=== PATIENT | female | born 1990 | race Caucasian/White ===

== ENCOUNTER → 2018-10-14 14:32 | Outpatient (CLI) | payer OTHER, SELFPAY ==
[2018-10-14 19:38] LABS: Chlamydia Trachomatis by PCR Negative (Negative); Neisserai gonorrhoeae by PCR Negative (Negative); Probe Check PASS; Sample Adequacy Control PASS; Specimen Processing Control PASS
[2018-10-18 11:59] LABS: HPV Reflexed? NOT INDICATED
== END ==
PROVIDERS: Visit Provider Obstetrics & Gynecology
DX: Z12.4 Encounter for screening for malignant neoplasm of cervix (principal); Z11.3 Encounter for screening for infections with a predominantly sexual mode of transmission; Z34.82 Encounter for supervision of other normal pregnancy, second trimester
CPT/HCPCS: 87491; 87591; 88175; G0145

== ENCOUNTER → 2018-10-20 09:06 | Outpatient (CLI) | payer OTHER, SELFPAY ==
[2017-04-13 18:25] VITALS: BMI 44.8
--- NOTE | 2018-10-20 09:09 | US_ITS ---
STUDY: FIRST TRIMESTER OBSTETRICAL ULTRASOUND REASON FOR EXAM: Female, 28 years old. dating. LMP: June 30, 2018. Unsure. TECHNIQUE: Transvaginal TECHNICAL QUALITY: Adequate. PRIOR ULTRASOUND: None. FINDINGS: There is visualization of a single gestational sac in a normal intrauterine position. There is a visualized yolk sac. The yolk sac measures 4.3 mm. There is visualization of the placenta. The placenta lies along the anterior wall of the uterus. There is visualization of a live embryo. The crown-rump length (CRL) measures 5.16 cm, indicating an estimated gestational age (EGA) of 11 weeks, 6 days. There is demonstrated cardiac activity with a heart rate of 132 bpm. The estimated gestation age (EGA) by LMP is 16 weeks, 0 days. The estimated date of delivery (APRIL) by LMP is May 05, 2019. The estimated gestation age (EGA) by US is 11 weeks, 6 days. The estimated date of delivery (APRIL) by US is May 05, 2019. The uterus measures 12.5 cm x 9.0 cm x 8.4 cm. There is no demonstrated uterine fibroid. The cervix is closed. The right ovary measures is not visualized.. The left ovary measures is not visualized.. There is no fluid in the cul de sac. US/Init OB < 14Wks US IMPRESSION: Single live intrauterine gestation with a mean gestational age of 11 weeks and 6 days. Electronically Signed: Francisco Simpson MD at 8:58 EST Tel [phone], Service support ,
== END ==
PROVIDERS: Family Provider Student in an Organized Health Care Education/Training Program; PCP Student in an Organized Health Care Education/Training Program; Referring Provider Obstetrics & Gynecology; Visit Provider Obstetrics & Gynecology
DX: Z34.82 Encounter for supervision of other normal pregnancy, second trimester (principal)
CPT/HCPCS: 76801

== ENCOUNTER → 2018-11-10 10:01 | Outpatient (CLI) | payer OTHER, SELFPAY ==
[2018-11-10 11:03] LABS: Color, Urine Yellow (Yellow); Glucose, Dipstick Normal (Normal); Ketone-Dipstick Negative (Negative); Leukocyte Esterase-Dipstick 25 /ul (Negative); Nitrite-Dipstick Negative (Negative); Occult Blood-Urine 10 /ul (Negative); Protein-Dipstick Negative (Negative); Specific Gravity, Urine 1.025 (1.002-1.030); Urine Bilirubin Dipstick Negative (Negative); Urine Clarity Sl. Cloudy (Clear); Urine Urobilinogen Normal (Normal)
[2018-11-10 14:00] LABS: Absolute Lymphocyte Count 1.69 X10^3/ul (0.83-4.51); Absolute Neutrophil Count 7.4 X10^3/uL (2.0-7.7); Basophil# 0.04 X10^3/uL; Basophil% 0.4 % (0-1); Eosinophil# 0.06 X10^3/uL; Eosinophils% 0.6 % (0-5); Hematocrit 40.3 % (37-47); Hemoglobin 13.4 g/dl (12.0-15.0); Lymphocyte # 1.69 X10^3/ul (4.0); Lymphocyte % 17.4 % (19-41); Mean Corp Hgb Conc 33.3 g/gl (32-36); Mean Corpuscular Hgb 28.3 pg (27.0-32.0); Mean Corpuscular Volume 85.2 fL (81-99); Mean Platelet Vol. 10.5 fl (6.2-12.0); Monocyte# 0.57 X10^3/uL; Monocyte% 5.9 % (0-10); Neutrophil # 7.35 X10^3/uL (2.7-7.7); Neutrophil % 75.4 % (47-70); Platelet Count 332 K/mm3 (150-450); RBC Distribution Width CV 13.6 % (11.6-14.6); RBC Distribution Width SD 42.3 fl (35.1-43.9); Red Blood Count 4.73 M/mm3 (4.2-5.4); White Blood Count 9.7 K/mm3 (4.4-11.0)
[2018-11-10 14:03] LABS: POSITIVE COUNT NO; POSITIVE DIFFERENTIAL NO; POSITIVE MORPHOLOGY NO
[2018-11-10 15:02] LABS: HIV - WCH Non-Reactive (Nonreactive); Rubella IgG > 500.0 IU/mL
[2018-11-11 09:07] LABS: HEPATITIS B SURFACE AG Negative (Negative); Hep C Antibodies 0.1 s/co ratio (0.0-0.9)
[2018-11-14 04:54] LABS: Prenatal RPR NONREACTIVE (NONREACTIVE)
== END ==
PROVIDERS: Visit Provider Obstetrics & Gynecology
DX: Z34.82 Encounter for supervision of other normal pregnancy, second trimester (principal)
CPT/HCPCS: 36415; 81002; 84443; 85025; 86703; 86762; 86803; 87340

== ENCOUNTER → 2018-12-17 12:31 | Outpatient (CLI) | payer OTHER, SELFPAY ==
--- NOTE | 2018-12-17 12:34 | US_ITS ---
STUDY: SECOND AND THIRD TRIMESTER OBSTETRICAL ULTRASOUND REASON FOR EXAM: Female, 28 years old. Routine survey. LMP: October 20, 2018. TECHNIQUE: Transabdominal TECHNICAL QUALITY: Limited. Examination limited due to obesity. PRIOR ULTRASOUND: None. FINDINGS: There is a single intrauterine fetus. The fetus is in a breech presentation. There is demonstrated cardiac activity with a heart rate of 147 bpm. There is a normal amniotic fluid volume. The largest amniotic fluid pocket measures 3.3 cm x 3.0 cm. The amniotic fluid index (SUMANTH) is within normal limits. The placenta is anterior in location and is not low lying. There are Grade 0 placental changes. The cervix measures 3.2 cm in length. 3 BIOMETRY: BPD: 4.29 cm: 19 weeks, 0 days HC: 17.02 cm: 19 weeks, 5 days AC: 13.53 cm: 19 weeks, 0 days FL: 3.09 cm: 9 weeks, 5 days CI: 71% FL/BPD: 72% FL/HC: FL/AC: 23% HC/AC: 1.26 age by current US: 19 weeks, 3 days. APRIL by current US: May 10, 2019. Estimated weight: 284 grams, +/- 42 grams, 10 %. age by prior US: 20 weeks, 1 days. APRIL by prior US: May 05, 2019. Age by LMP: 20 weeks, 1 days. APRIL by LMP: May 05, 2019. ANATOMY: Gender: Indeterminant Cranium: Normal lateral ventricles. Normal choroid plexus. Normal cerebellum. Normal cisterna magna. Normal face, nose and lips. Chest: Normal 4-chamber heart. Abdomen/Pelvis: Normal diaphragm. Normal stomach. Normal abdominal wall. Normal cord insertion. Normal 3 vessel cord. Normal kidneys. Normal bladder. Spine: Normal cervical spine. Normal thoracic spine. Normal lumbar spine. Normal sacrum. Extremities: Normal bilateral upper extremities. Normal bilateral lower extremities. US/OB Anatomy Scan IMPRESSION: Single live intrauterine gestation with mean gestational age of 20 weeks and 1 day. The measurements obtained today fall within the normal expected range. Electronically Signed: Francisco Simpson MD at 12:54 EST Tel [phone], Service support ,
--- OUTSIDE RECORDS SUMMARY | 2019-02-21 08:29 | XMS RPT_ITS ---
:1990 Author Organization [place] Support Name Relationship Address Phone RIGO JONES Unavailable [address] + [place] [address] PIERCE GRIMALDO Unavailable [address] [facility] [address] + [place] [address] [facility] Unavailable [address] + [place] [address] RIGO JONES Unavailable [address] + [place] [address] PIERCE GRIMALDO Unavailable [address] [facility] [address] + [place] [address] [facility] Unavailable [address] + [place] [address] RGIO JONES Unavailable [address] + [place] [address] PIERCE GRIMALDO Unavailable [address] + [place] [address] [facility] Unavailable [address] + [place] [address] RIGO JONES Unavailable [address] + [place] [address] PIERCE GRIMALDO Unavailable [address] + [place] [address] [facility] Unavailable [address] + [place] [address] RIGO JONES Unavailable [address] + [place] [address] PIERCE GRIMALDO Unavailable [address] [facility] [address] + [place] [address] [facility] Unavailable [address] + [place] [address] Care Team Providers Name Role Phone Verónica Raygoza Attending Unavailable Idalmis, Verónica Referring Unavailable Sergio Victoria Primary Care Unavailable ASSESSMENT, HEALTH RISK Attending Unavailable ASSESSMENT, HEALTH RISK Referring Unavailable Verónica Raygoza Primary Care Unavailable Ayms, Verónica Attending Unavailable Amys, Verónica Attending Unavailable Amys, Verónica Referring Unavailable DowningCole Primary Care Unavailable Amys, Verónica Attending Unavailable PROBLEMS PROBLEMS DATE TYPE CONDITION / CODE ATTENDING STATUS SOURCE 11/12/2018 Unknown Z34.82 - Encounter Verónica Raygoza Active Amy for supervision of Community other normal Hospital , second Repository trimester / Z34.82(ICD-10) 10/14/2018 Unknown Z12.4 - Encounter Verónica Raygoza Active [place] for screening for Community malignant neoplasm Hospital of cervix / Repository Z12.4(ICD-10) 10/14/2018 Unknown Z11.3 - Encounter Verónica Raygoza Active [place] for screening for Community infections with a Hospital predominantly Repository sexual mode of transmission / Z11.3(ICD-10) PROCEDURES PROCEDURES No Procedure Records FoundRESULTS RESULTS OB ANATOMY SCAN Observed: 12/17/2018 Status: F Source: AMY 12:35 PM [facility] REPOSITORY [facility] Imaging Services [address] [place] [address] OB Anatomy Scan MR#: [id number] Acct: [id number] Name: KATHI GRIMALDO Rep #: [id number] : 1990 F 28 From: Francisco Simpson MD PCP: Sergio Victoria MD Status: REG CLI Study: OB Anatomy Scan Date of Exam: 12/17/18 Exam# [id number] Ordering Dr: Verónica Raygoza MD STUDY: SECOND AND THIRD TRIMESTER OBSTETRICAL ULTRASOUND REASON FOR EXAM: Female, 28 years old. Routine survey. LMP: October 20, 2018. TECHNIQUE: Transabdominal TECHNICAL QUALITY: Limited. Examination limited due to obesity. PRIOR ULTRASOUND: None. FINDINGS: There is a single intrauterine fetus. The fetus is in a breech presentation. There is demonstrated cardiac activity with a heart rate of 147 bpm. There is a normal amniotic fluid volume. The largest amniotic fluid pocket measures 3.3 cm x 3.0 cm. The amniotic fluid index (SUMANTH) is within normal limits. The placenta is anterior in location and is not low lying. There are Grade 0 placental changes. The cervix measures 3.2 cm in length. 3 BIOMETRY: BPD: 4.29 cm: 19 weeks, 0 days HC: 17.02 cm: 19 weeks, 5 days AC: 13.53 cm: 19 weeks, 0 days FL: 3.09 cm: 9 weeks, 5 days CI: 71% FL/BPD: 72% FL/HC: FL/AC: 23% HC/AC: 1.26 age by current US: 19 weeks, 3 days. APRIL by current US: May 10, 2019. Estimated weight: 284 grams, +/- 42 grams, 10 %. age by prior US: 20 weeks, 1 days. APRIL by prior US: May 05, 2019. Age by LMP: 20 weeks, 1 days. APRIL by LMP: May 05, 2019. ANATOMY: Gender: Indeterminant Cranium: Normal lateral ventricles. Normal choroid plexus. Normal cerebellum. Normal cisterna magna. Normal face, nose and lips. Chest: Normal 4-chamber heart. Abdomen/Pelvis: Normal diaphragm. Normal stomach. Normal abdominal wall. Normal cord insertion. Normal 3 vessel cord. Normal kidneys. Normal bladder. Spine: Normal cervical spine. Normal thoracic spine. Normal lumbar spine. Normal sacrum. Extremities: Normal bilateral upper extremities. Normal bilateral lower extremities. US/OB Anatomy Scan IMPRESSION: Single live intrauterine gestation with mean gestational age of 20 weeks and 1 day. The measurements obtained today fall within the normal expected range. Electronically Signed: Francisco Simpson MD at 12:54 EST Tel [phone], Service support , CC: Verónica Raygoza MD; Sergio Victoria MD Vision Impaired Teacher: Signed URINALYSIS, ROUTINE Collected: 11/10/2018 Status: F Source: AMY (DIPSTICK) 10:04 AM [facility] REPOSITORY Order Comment: How was Urine Obtained? Urine, Random TYPE CODE TESTS RESULT OUT OF RANGE REFERENCE UNITS LAB L400.3000 Yellow COLOR Normal Yellow LAB L400.3050 Clear Normal CLARITY Sl. Cloudy LAB L400.3200 Normal mg/dl Normal GLUCOSE, UR Normal LAB L400.3300 Negative mg/dL Normal BILIRUBIN URINE Negative LAB L400.3400 Negative mg/dl Normal KETONE UR Negative LAB L400.3465 1.002-1.030 Normal SP.GR. DIPSTX 1.025 LAB L400.3550 5.0 - 8.0 pH UR Normal 6.0 LAB L400.3600 Negative mg/dl PROT Normal DIPSTX Negative LAB L400.3700 Normal mg/dl Normal UROBILI Normal LAB L400.3750 Negative Normal NITRITE UR Negative LAB L400.3780 Negative /ul High 10 OCCULT BLOOD-UR LAB L400.3800 Negative /ul High LEUK 25 ESTERASE Performed By: #### L400.2010 #### [facility] [address] [place], [address] CBC W/DIFF, AUTOMATED Collected: 11/10/2018 Status: F Source: AMY 10:04 AM [facility] REPOSITORY TYPE CODE TESTS RESULT OUT OF RANGE REFERENCE UNITS LAB L100.1000 4.4-11.0 K/mm3 Normal WBC 9.7 LAB L100.1200 4.2-5.4 M/mm3 Normal RBC 4.73 LAB L100.1300 12.0-15.0 g/dl Normal HGB 13.4 LAB L100.1400 37-47 % Normal HCT 40.3 LAB L100.1500 81-99 fL Normal MCV 85.2 LAB L100.1600 27.0-32.0 pg Normal MCH 28.3 LAB L100.1700 32-36 g/gl Normal MCHC 33.3 LAB L100.1810 11.6-14.6 % Normal RDW CV 13.6 LAB L100.1820 35.1-43.9 fl Normal RDW SD 42.3 LAB L100.1900 150-450 K/mm3 Normal PLT 332 LAB L100.2000 6.2-12.0 fl Normal MPV 10.5 LAB L100.2100 47-70 % High NEUT% 75.4 LAB L100.2200 19-41 % Low LY% 17.4 LAB L100.2300 0-10 % Normal MONO% 5.9 LAB L100.2400 0-5 % Normal EO% 0.6 LAB L100.2500 0-1 % Normal BASO% 0.4 LAB L100.2550 0.0-0.9 % Normal IM GRAN % 0.300 Result Comment: IG% - Immature Granulocytes (promyelocytes, myelocytes and metamyelocytes) > 1% indicates that a LEFT SHIFT is Present. LAB L100.2620 2.0-7.7 X10 3/uL Normal Absolute Neut 7.4 LAB L100.2720 0.83-4.51 X10 3/ul Normal Absolute Lymph 1.69 Performed By: #### L100.0100 #### [facility] [address] [place], [place], [id number] THYROID STIM HORMONE Collected: 11/10/2018 Status: F Source: AMY (TSH) 10:04 [facility] REPOSITORY TYPE CODE TESTS RESULT OUT OF RANGE REFERENCE UNITS LAB L501.9520 0.358-3.74 uIU/mL Normal TSH 2.40 Performed By: #### L501.9520 #### [facility] [address] [place] [address], [id number] T AND S-NO Collected: 11/10/2018 Status: F Source: AMY CHARGE W/PNP 10:04 [facility] REPOSITORY Order Comment: Reason for Type AND Screen/Red Cells: Surgery? N TYPE CODE TESTS RESULT OUT OF RANGE REFERENCE UNITS LAB B10.0800 O Normal BLOOD POSITIVE TYPE GEL LAB B100.4050 Normal Ab SCREEN NEGATIVE GEL Performed By: #### B100.7550 #### [facility] [place], [place], [address] RUBELLA IGG Collected: 11/10/2018 Status: F Source: AMY 10:04 AM [facility] REPOSITORY TYPE CODE TESTS RESULT OUT OF RANGE REFERENCE UNITS LAB L509.4000 IU/mL Normal Rubella IgG > 500.0 Result Comment: Antibody results Interpretation of Immune Status < 5 IU/ml Presumed Non-immune 5 - < 10 IU/ml Equivocal > or = 10 IU/ml Presumed Immune Performed By: #### L509.4000, L3890.6005 #### [facility] [address] [place], [place], [address] HIV - WCH Collected: 11/10/2018 Status: F Source: AMY 10:04 AM [facility] REPOSITORY TYPE CODE TESTS RESULT OUT OF RANGE REFERENCE UNITS LAB L3890.6005 Nonreactive Normal HIV - W[facility] Non-Reactive Performed By: #### L509.4000, L3890.6005 #### [facility] [address] [facility] [place], [place], [id number] HEPATITIS B SURFACE Collected: 11/10/2018 Status: F Source: AMY AG 10:04 AM [facility] REPOSITORY TYPE CODE TESTS RESULT OUT OF RANGE REFERENCE UNITS LAB L3100.0400 Negative Normal HB Negative SURF AG Result Comment: Performed at: [facility] [id number] Chain Saw Mechanic: Mustapha Castanon PhD, Phone: [phone] Performed By: #### L3100.0390, L3100.0625 #### [facility] (refer to report for specific site) refer to report for address and phone number HEPATITIS C ANTIBODIES Collected: 11/10/2018 Status: F Source: AMY 10:04 AM [facility] REPOSITORY TYPE CODE TESTS RESULT OUT OF RANGE REFERENCE UNITS LAB L3100.0650 0.0-0.9 s/co ratio Normal HEP C AB 0.1 Result Comment: Negative: < 0.8 Indeterminate: 0.8 - 0.9 Positive: > 0.9 The CDC recommends that a positive HCV antibody result be followed up with a HCV Nucleic Acid Amplification test (103424). Performed By: #### L3100.0390, L3100.0625 #### [facility] (refer to report for specific site) refer to report for address and phone number RPR Collected: 11/10/2018 Status: F Source: AMY 10:04 AM [facility] REPOSITORY TYPE CODE TESTS RESULT OUT OF REFERENCE UNITS RANGE LAB L700.5100 NONREACTIVE Normal RPR NONREACTIVE Performed By: #### L700.5100 #### [facility] [address] [place], [address] INIT OB < 14WKS US Observed: 10/20/2018 Status: F Source: AMY 9:10 AM [facility] REPOSITORY [facility] Imaging Services [address] [place] [address] Init OB < 14Wks US MR#: [id number] Acct: [id number] Name: KATHI GRIMALDO Rep #: [id number] : 1990 F 28 From: Francisco Simpson MD PCP: Cole Tomlinson DO Status: REG CLI Study: Init OB < 14Wks US Date of Exam: 10/20/18 Exam# [id number] Ordering Dr: Verónica Raygoza MD STUDY: FIRST TRIMESTER OBSTETRICAL ULTRASOUND REASON FOR EXAM: Female, 28 years old. dating. LMP: June 30, 2018. Unsure. TECHNIQUE: Transvaginal TECHNICAL QUALITY: Adequate. PRIOR ULTRASOUND: None. FINDINGS: There is visualization of a single gestational sac in a normal intrauterine position. There is a visualized yolk sac. The yolk sac measures 4.3 mm. There is visualization of the placenta. The placenta lies along the anterior wall of the uterus. There is visualization of a live embryo. The crown-rump length (CRL) measures 5.16 cm, indicating an estimated gestational age (EGA) of 11 weeks, 6 days. There is demonstrated cardiac activity with a heart rate of 132 bpm. The estimated gestation age (EGA) by LMP is 16 weeks, 0 days. The estimated date of delivery (APRIL) by LMP is May 05, 2019. The estimated gestation age (EGA) by US is 11 weeks, 6 days. The estimated date of delivery (APRIL) by US is May 05, 2019. The uterus measures 12.5 cm x 9.0 cm x 8.4 cm. There is no demonstrated uterine fibroid. The cervix is closed. The right ovary measures is not visualized.. The left ovary measures is not visualized.. There is no fluid in the cul de sac. US/Init OB < 14Wks US IMPRESSION: Single live intrauterine gestation with a mean gestational age of 11 weeks and 6 days. Electronically Signed: Francisco Simpson MD at 8:58 EST Tel [phone], Service support , CC: Verónica Raygoza MD; Cole Tomlinson DO Vision Impaired Teacher: Signed CT/NG WCH BY PCR Collected: 10/14/2018 Status: F Source: [place] 9:30 AM [facility] REPOSITORY TYPE CODE TESTS RESULT OUT OF RANGE REFERENCE UNITS LAB L8200.2100 Negative Normal Chlam Negative Trac PCR LAB L8200.2200 Negative Normal NG by Negative PCR Performed By: #### L8200.2000 #### [facility] [address] [place], [address] PAP I-G W/RFX HRHPV Collected: 10/14/2018 Status: F Source: [place] 9:30 AM [facility] REPOSITORY Order Comment: CYTOLOGY INFORMATION: - CLINICAL INFORMATION: - DATE LMP/MENOPAUSE: 06/30/18 LMP - COLLECTION VIAL: Thin Prep Vial - FITTING ROOM OPERATOR SOURCE: CERVICAL/ENDOCERVICAL - COLLECTION TECHNIQUE: BRUSH/SPATULA Specimen Comment: [id number] Specimen Comment: Source.............Cervix Specimen Comment: LMP / Prev Treat...FLW=[id number] Specimen Comment: Other.............. Specimen Comment: No. of containers..01 ThinPrep Vial TYPE CODE TESTS RESULT OUT OF RANGE REFERENCE UNITS LAB L7400.0800 . Normal DIAGN Comment Result Comment: NEGATIVE FOR INTRAEPITHELIAL LESION AND MALIGNANCY. LAB L7400.0900 . Normal ADEQ Comment Result Comment: Satisfactory for evaluation. Endocervical and/or squamous metaplastic cells (endocervical component) are present. LAB L7400.1400 . Normal PERFORM Comment Result Comment: Jacki Edwards, Repair Operator (ASCP) LAB L7400.2575 . Normal TEST METHOD Comment Result Comment: This liquid based ThinPrep(R) pap test was screened with the use of an image guided system. LAB L7400.2600 . Normal . COMM LAB L7400.2700 . Normal PAPSMR Comment Result Comment: The Pap smear is a screening test designed to aid in the detection of premalignant and malignant conditions of the uterine cervix. It is not a diagnostic procedure and should not be used as the sole means of detecting cervical cancer. Both false-positive and false-negative reports do occur. LAB L7400.2800 . Normal HPV RFLX Comment Result Comment: The HPV DNA reflex criteria were not met with this specimen result therefore, no HPV testing was performed. Performed at: [facility] [address] [id number] Chain Saw Mechanic: Shireen Riojas MD, Phone: [phone] Performed By: #### L7400.0350 #### [facility] (refer to [facility] for specific site) refer to report for address and phone number URINALYSIS, EMPLOYEE Collected: 08/19/2018 Status: F Source: [place] 11:09 AM [facility] REPOSITORY TYPE CODE TESTS RESULT OUT OF RANGE REFERENCE UNITS LAB L400.3000 Yellow COLOR Normal Yellow LAB L400.3050 Clear Normal CLARITY Clear LAB L400.3200 Normal mg/dl Normal GLUCOSE, UR Normal LAB L400.3300 Negative mg/dL Normal BILIRUBIN URINE Negative LAB L400.3400 Negative mg/dl Normal KETONE UR Negative LAB L400.3465 1.002-1.030 Normal SP.GR. DIPSTX 1.015 LAB L400.3550 5.0 - 8.0 pH UR Normal 6.0 LAB L400.3600 Negative mg/dl PROT Normal DIPSTX Negative LAB L400.3700 Normal mg/dl Normal UROBILI Normal LAB L400.3750 Negative Normal NITRITE UR Negative LAB L400.3780 Negative /ul Normal OCCULT BLOOD-UR Negative LAB L400.3800 Negative /ul LEUK Normal ESTERASE Negative Performed By: #### L400.0100 #### [facility] [place], [address] CBC, EMPLOYEE Collected: 08/19/2018 Status: F Source: AMY 11:09 AM [facility] REPOSITORY TYPE CODE TESTS RESULT OUT OF RANGE REFERENCE UNITS LAB L100.1000 4.4-11.0 K/mm3 Normal WBC 7.2 LAB L100.1200 4.2-5.4 M/mm3 Normal RBC 4.95 LAB L100.1300 12.0-15.0 g/dl Normal HGB 13.7 LAB L100.1400 37-47 % Normal HCT 41.0 LAB L100.1500 81-99 fL Normal MCV 82.8 LAB L100.1600 27.0-32.0 pg Normal MCH 27.7 LAB L100.1700 32-36 g/gl Normal MCHC 33.4 LAB L100.1810 11.6-14.6 % Normal RDW CV 12.9 LAB L100.1820 35.1-43.9 fl Normal RDW SD 38.7 LAB L100.1900 150-450 K/mm3 Normal PLT 342 LAB L100.2000 6.2-12.0 fl Normal MPV 10.0 LAB L100.2110 47-70 % Normal NEUT% 58.6 LAB L100.2210 19-41 % Normal LY% 32.0 LAB L100.2310 0-10 % Normal MONO% 7.7 LAB L100.2410 0-5 % Normal EO% 1.0 LAB L100.2510 0-1 % Normal BASO% 0.6 LAB L100.2620 2.0-7.7 X10 3/uL Normal Absolute Neut 4.2 LAB L100.2720 0.83-4.51 X10 3/ul Normal Absolute Lymph 2.32 Performed By: #### L100.0200 #### [facility] [address] [place], [address] NICOTINE URINE DRUG Collected: 08/19/2018 Status: F Source: AMY SCREEN 11:09 AM [facility] REPOSITORY TYPE CODE TESTS RESULT OUT OF RANGE REFERENCE UNITS LAB L505.6250 TO BE Normal CONFIRMED Result Comment: CONFIRMATORY TESTING FOR ALL POSITIVE URINE DRUG SCREEN RESULTS WILL ONLY BE SENT OUT UPON PHYSICIAN ORDER. The results of Urine Drug Screen methods provide only preliminary analytical test results. A more specific alternate chemical method must be used in order to obtain a confirmed analytical result. Gas chromatography/mass spectrometery (GC/MS) is the preferred confirmatory method. Clinical consideration and professional judgement should be applied to any drug of abuse test result, particularly when preliminary positive results are used. LAB L505.6270 <200 ng/mL Normal COT DRG Negative SCREEN Result Comment: Cotinine is the first-stage metabolite of Nicotine. Performed By: #### L505.6240 #### [facility] [place], [address] EMPLOYEE PROFILE Collected: 08/19/2018 Status: F Source: [place] 11:09 AM [facility] REPOSITORY TYPE CODE TESTS RESULT OUT OF RANGE REFERENCE UNITS LAB L501.0100 74-106 mg/dL Normal GLU 78 Result Comment: Please note revised GLUCOSE reference range effective 2018. LAB L501.1000 7-18 mg/dL Normal BUN 13 LAB L501.1100 0.55-1.02 mg/dL Normal CREAT,SERUM 0.84 Result Comment: The validity of the calculated GFR AND GFRAA in patients over 70 years has not been determined. Clinical correlation is essential. LAB L501.1110 >60 mL/min Normal EST GFR 84 Result Comment: Non- GFR Calc LAB L501.1115 >60 mL/min Normal EST GFR - AA 102 Result Comment: GFR Calc LAB L501.1300 10-20 RATIO Normal BUN/CRE 15.4 LAB L501.1400 2.6-6.0 mg/dL Normal URIC 4.9 Result Comment: The drugs N-Acetylcysteine and Metamizole may falsely depress this assay. LAB L501.1500 6.4-8.2 g/dL Normal T PROT 7.5 LAB L501.1800 3.2-5.0 g/dL Normal ALB 3.6 LAB L501.1950 2.2-4.2 g/dL Normal GLOB 3.9 LAB L501.2000 0.9-2.4 RATIO Normal A/G 0.9 LAB L501.2200 8.5-10.1 mg/dL Low CA 8.3 LAB L501.2300 2.5-4.9 mg/dL Normal PHOS 2.6 LAB L501.4100 15-37 U/L Normal AST 18 LAB L501.4305 45-117 U/L Normal ALK P 68 LAB L501.4405 13-56 U/L Normal ALT 36 LAB L501.4600 0.20-1.00 mg/dL Normal T BILI 0.60 LAB L501.4700 0.00-0.30 mg/dL Normal D BILI 0.13 LAB L501.4900 200 mg/dL Normal CHOL 130 Result Comment: <200 mg/dL Desirable 200-240 mg/dL Borderline >240 mg/dL High Risk LAB L501.5000 mg/dL Normal TRIG 98 Result Comment: The drugs N-Acetylcysteine and Metamizole may falsely depress this assay. Serum Triglycerides Reference Interval Normal <150 mg/dL Borderline high 150 - 199 mg/dL High 200 - 499 mg/dL Very High > or = 500 mg/dL LAB L501.5300 136-145 mmol/L Normal NA 138 LAB L501.5600 3.5-5.1 mmol/L Normal K 3.9 LAB L501.5900 98-107 mmol/L High CL 108 LAB L501.6100 21.0-32.0 mmol/L Low CO2 20.0 LAB L501.6200 5-15 Normal GAP 10 LAB L501.6400 mg/dL Normal HDL 55 Result Comment: The drugs N-Acetylcysteine and Metamizole may falsely depress this assay. Reference Range HDL <40 mg/dL Low HDL Cholesterol HDL >or= 60 mg/dL High HDL Cholesterol LAB L501.6475 Normal CHOL:HDL 2.40 LAB L501.6500 0-130 mg/dL Normal LDL 55 LAB L501.6600 5-40 mg/dL Normal VLDL 20 LAB L504.2610 84-246 U/L Normal LDH 192 Performed By: #### L500.2900 #### [facility] [address] [place], [place], [id number] ALLERGIES ALLERGIES DATE TYPE / CODE NAME / CODE REACTION SEVERITY SOURCE 04/10/2017 Drug No Known Unknown [facility] Allergy/4160 Allergies/F00 [facility] [address](SNOMED [id number](RXNOR Repository CT) M) ENCOUNTERS ENCOUNTERS ADMIT/DISCHARGE ACCOUNT ADMITTING ENCOUNTER LOCATION SOURCE NUMBER CLASS 12/17/2018 [id number] Ambulatory [address] ing:OPUS Repository 11/10/2018 [id number] Ambulatory [place] Amy 2 [facility] ing:WOBLAB Repository 10/20/2018 [id number] Ambulatory [place] 3 [facility] ing:OPUS Repository 10/14/2018 [id number] Ambulatory [place] Amy 0 [facility] ing:LABSPEC Repository 08/19/2018 [id number] Ambulatory [place] 7 [facility] ing:EMPH Repository PAYERS PAYERS ENCOUNTER GUARANTOR PAYER SUBSCRIBER SOURCE 12/17/2018 KATHI Petersen Primary Insurance:[facility] KATHI [place] [id number] N [facility] [address] Number: Repository [id number]: 330 [id number] [phone] (HP) Date:6509-60-39KC [address] [address], [place] [address]LF: CHECK WEBSITE 12/17/2018 Secondary NOT GIVENUNK [place] Insurance:SELF PAY [facility] Number: Effective Repository Date:2018-11-10 11/10/2018 KATHI Petersen Primary Insurance:[facility] KATHI [address] [id number] N [facility]: [address] Number: Repository [id number]: 330 [id number] [phone] (HP) Date:4220-81-63QV [address] [address], [place] [address]OS: CHECK WEBSITE 11/10/2018 Secondary NOT GIVENUNK [place] Insurance:SELF PAY [facility] Number: Effective Repository Date:2018-11-10 10/20/2018 KATHI Petersen Primary Insurance:[facility] KATHI [place] [id number] N [facility]: [address] Number: Repository [id number]: 330 [id number] [phone] (HP) Date:8038-38-30XA [address] [address], [place] [address]AJ: CHECK WEBSITE 10/20/2018 Secondary NOT GIVENUNK [place] Insurance:SELF PAY [facility] Number: Effective Repository Date:2018-10-14 10/14/2018 Kathi Petersen Primary Insurance:[facility] Kathi Reyes [id number] N [facility] [id number] Number: Repository [id number]: [phone] [id number] [phone] () Date:4752-33-92LL [address] [address], [place] [address]LK: CHECK WEBSITE 10/14/2018 Secondary NOT GIVENUNK [place] Insurance:SELF PAY [facility] Number: Effective Repository Date:2018-10-14 08/19/2018 Kathi Petersen Primary NOT GIVENUNK [place] [id number] N Insurance:SELF PAY [place] Number: Effective Repository [id number]: 330) Date:2018-08-19 [phone] ()
== END ==
PROVIDERS: Family Provider Family Medicine; PCP Family Medicine; Referring Provider Obstetrics & Gynecology; Visit Provider Obstetrics & Gynecology
DX: Z36.9 Encounter for antenatal screening, unspecified (principal)
CPT/HCPCS: 76805

== ENCOUNTER → 2019-02-03 09:06 | Outpatient (CLI) | payer OTHER, SELFPAY ==
[2019-02-03 10:48] LABS: Hematocrit 36.3 % (37-47); Hemoglobin 11.9 g/dl (12.0-15.0); Mean Corp Hgb Conc 32.8 g/gl (32-36); Mean Corpuscular Hgb 29.6 pg (27.0-32.0); Mean Corpuscular Volume 90.3 fL (81-99); Mean Platelet Vol. 10.6 fl (6.2-12.0); Platelet Count 309 K/mm3 (150-450); RBC Distribution Width CV 13.1 % (11.6-14.6); RBC Distribution Width SD 42.7 fl (35.1-43.9); Red Blood Count 4.02 M/mm3 (4.2-5.4); White Blood Count 9.4 K/mm3 (4.4-11.0)
[2019-02-03 10:49] LABS: Scan Indicated on CBC? Y/N NO
[2019-02-03 10:53] LABS: Glucose Challenge Gest 1H 50g 111 mg/dL (70-140)
== END ==
PROVIDERS: Visit Provider Obstetrics & Gynecology
DX: Z34.82 Encounter for supervision of other normal pregnancy, second trimester (principal)
CPT/HCPCS: 36415; 82950; 85027

== ENCOUNTER → 2019-02-23 08:58 | Outpatient (CLI) | payer OTHER, SELFPAY ==
--- NOTE | 2019-02-23 09:00 | US_ITS ---
STUDY: SECOND AND THIRD TRIMESTER OBSTETRICAL ULTRASOUND - LIMITED REASON FOR EXAM: Female, 28 years old. Small for dates. LMP: July 29, 2018. PRIOR ULTRASOUND: Comparison is made with prior study dated December 17, 2018. TECHNIQUE: Transabdominal TECHNICAL QUALITY: Adequate. FINDINGS: There is a single intrauterine fetus. The fetus is in a breech presentation. There is demonstrated cardiac activity with a heart rate of 132 bpm. There is a normal amniotic fluid volume. The largest amniotic fluid pocket measures 5.1 cm. The amniotic fluid index (SUMANTH) is 12.3 cm. The placenta is anterior in location and is not low lying. There are Grade 0 placental changes. The cervix measures 3.5 cm in length. BIOMETRY: BPD: 7.26 cm: 29 weeks, 1 days HC: 26.47 cm: 28 weeks, 6 days AC: 23.14 cm: 27 weeks, 4 days FL: 5.43 cm: 28 weeks, 6 days Age by LMP: 29 weeks, 6 days. APRIL by LMP: May 05, 2019. age by prior US: 29 weeks, 1 days. APRIL by prior US: May 10, 2019. age by current US: 28 weeks, 5 days. APRIL by current US: May 13, 2019. Estimated weight: 1182 grams, +/- 173 grams, 4 percentile. Gender: Indeterminant US/OB Limited With Biometrics IMPRESSION: Single live intrauterine gestation with a mean gestational age of 29 weeks and 1 day. The measurement obtained today fall within the lower limits of normal. Electronically Signed: Francisco Simpson, at 10:04 EDT , Service support ,
== END ==
PROVIDERS: Family Provider Family Medicine; PCP Family Medicine; Referring Provider Obstetrics & Gynecology; Visit Provider Obstetrics & Gynecology
DX: O36.5990 Maternal care for other known or suspected poor fetal growth, unspecified trimester, not applicable or unspecified (principal); Z3A.00 Weeks of gestation of pregnancy not specified
CPT/HCPCS: 76816

== ENCOUNTER 2019-03-10 12:34 | Outpatient (CLI) | payer OTHER, SELFPAY ==
[2019-03-10 12:53] VITALS: BMI 44.0
[2019-03-10 13:05] VITALS: BP 121/64; PULSE 88; RESP 16; TEMP 36.6; O2SAT 97
--- NOTE | 2019-03-13 16:27 | OB.TRI.NOTE ---
History of Present Illness Date of Service: 03/10/19 Reason For Visit: NON STRESS TEST Date of Service: 03/10/19 Final APRIL: 05/05/19 Final APRIL Source: US <20 weeks Gestational age: 32 Weeks and 0 Days History of Present Illness: 28 yo for planned NST 32 wk Sono suggesting SGA Fundal height WNL. Allergies No Known Allergies Allergy (Verified 04/10/17 11:01) Physical Exam Vitals: Vital Signs Temp Pulse Resp BP Pulse Ox 98 F 88 16 121/64 H 97 03/10/19 13:05 03/10/19 13:05 03/10/19 13:05 03/10/19 13:05 03/10/19 13:05 NST - FHR Rate Baby A Baseline: 130-140 with accels to 160-170s Variability:: Moderate Accelerations:: 15 x 15 Decelerations:: None, Early NST Reactive:: Yes, Appropriate for gestational age FHR Category:: Category I Uterine Activity:: No UCs Impression/Plan 32 wk SGA on sono NST reactive Continue twice weekly NST Growth sono q month until delivery Keep next ofc visit as planned.
== END 2019-03-10 13:05 | disposition home or self-care (01) ==
LOC: WPOUT 12:35 → OBT 12:36
PROVIDERS: Family Provider Family Medicine; PCP Family Medicine; Referring Provider Obstetrics & Gynecology; Visit Provider Obstetrics & Gynecology
DX: O36.5930 Maternal care for other known or suspected poor fetal growth, third trimester, not applicable or unspecified (principal); Z3A.32 32 weeks gestation of pregnancy
CPT/HCPCS: 59025

== ENCOUNTER 2019-03-17 18:07 | Outpatient (CLI) | payer OTHER, SELFPAY ==
[2019-03-17 18:48] VITALS: BMI 44.2
--- NOTE | 2019-03-18 09:13 | OB.TRI.NOTE ---
History of Present Illness Date of Service: 03/17/19 Reason For Visit: NST Date of Service: 03/17/19 Final APRIL: 05/05/19 Final APRIL Source: US <20 weeks Gestational age: 33 Weeks and 0 Days History of Present Illness: 28 yo female at 33 wk EGA presents for scheduled NST (twice weekly) for suspected SGA on sono at [facility]. NST twice weekly planned, and growth sonos q month to follow this. Allergies No Known Allergies Allergy (Verified 04/10/17 11:01) NST - FHR Rate Baby A Baseline: 120-130 avg variability Accels to 150 Variability:: Moderate Accelerations:: 15 x 15 Decelerations:: Variable - Rare, with quick return in less than 10 sec. Massimo at 90 bpm. NST Reactive:: Yes, Appropriate for gestational age FHR Category:: Category I Uterine Activity:: NO UCs
== END 2019-03-17 18:40 | disposition home or self-care (01) ==
LOC: WPOUT 18:39 → WP 18:40
PROVIDERS: Family Provider Family Medicine; PCP Family Medicine; Referring Provider Obstetrics & Gynecology; Visit Provider Obstetrics & Gynecology
DX: Z36.4 Encounter for antenatal screening for fetal growth retardation (principal)
CPT/HCPCS: 59025

== ENCOUNTER 2019-03-23 16:50 | Outpatient (CLI) | payer OTHER, SELFPAY ==
[2019-03-23 17:10] VITALS: BMI 44.5
[2019-03-23 17:28] VITALS: BP 130/75; PULSE 81; RESP 16; TEMP 36.7; O2SAT 98
--- NOTE | 2019-03-25 09:24 | OB.TRI.HP_ITS ---
History of Present Illness Was patient seen by the physician?: No Reason For Visit: NST Date of Service: 03/23/19 Final APRIL: 05/05/19 Final APRIL Source: US <20 weeks Gestational age: 33 Weeks and 6 Days History of Present Illness: 33+ week intrauterine presents for routine ultrasound for possible SGA noted on ultrasound. care otherwise uneventful. Allergies No Known Allergies Allergy (Verified 03/23/19 17:11) Physical Exam Vitals: Vital Signs Temp Pulse Resp BP Pulse Ox 98.1 F 81 16 130/75 H 98 03/23/19 17:28 03/23/19 17:28 03/23/19 17:28 03/23/19 17:28 03/23/19 17:28 NST - FHR Rate Baby A NST Reactive:: Yes FHR Category:: Category I Impression/Plan 33+ week intrauterine with possible small for gestational age. Mackay ctive nonstress test noted. Continue routine follow-up.
== END 2019-03-23 17:25 | disposition home or self-care (01) ==
LOC: WPOUT 16:57 → OBT 16:57
PROVIDERS: Family Provider Family Medicine; PCP Family Medicine; Referring Provider Obstetrics & Gynecology; Visit Provider Obstetrics & Gynecology
DX: Z34.93 Encounter for supervision of normal pregnancy, unspecified, third trimester (principal); Z3A.33 33 weeks gestation of pregnancy
CPT/HCPCS: 59025; 59050; 99218; G0378

== ENCOUNTER → 2019-03-25 12:22 | Outpatient (CLI) | payer OTHER, SELFPAY ==
[2019-03-23 17:10] VITALS: BMI 44.5
--- NOTE | 2019-03-25 12:24 | US_ITS ---
STUDY: SECOND AND THIRD TRIMESTER OBSTETRICAL ULTRASOUND - LIMITED REASON FOR EXAM: Female, 28 years old. Growth check LMP: 07/29/2018 PRIOR ULTRASOUND: 02/23/2019 TECHNIQUE: Transabdominal TECHNICAL QUALITY: Adequate. FINDINGS: There is a single intrauterine fetus. The fetus is in a cephalic presentation. There is demonstrated cardiac activity with a heart rate of 142 bpm. There is a normal amniotic fluid volume. The largest amniotic fluid pocket measures 5.2 cm. The amniotic fluid index (SUMANTH) is 13.5 cm. The placenta is anterior in location and is not low lying. There are Grade 1 placental changes. The cervix measures 4.4 cm in length. BIOMETRY: BPD: 8.10 cm: 32 weeks, 4 days HC: 29.64 cm: 32 weeks, 6 days AC: 27.04 cm: 31 weeks, 1 days FL: 6.59 cm: 34 weeks, 0 days Age by LMP: 34 weeks, 1 days. APRIL by LMP: 05/05/2019. age by prior US: 33 weeks, 0 days. APRIL by prior US: 05/13/2019. age by current US: 32 weeks, 5 days. APRIL by current US: 05/15/2019. Estimated weight: 1942 grams, +/- 284 grams, 7 percentile. Gender: Indeterminant US/OB Limited With Biometrics IMPRESSION: Single live intrauterine at 32 weeks, 5 days by current ultrasound with APRIL of 05/15/2019. Heart rate at 142 bpm. No suspicious sonographic findings, normal growth noted since the previous study. Electronically Signed: Richard Sparks MD at 10:10 EDT , Service support ,
== END ==
PROVIDERS: Family Provider Family Medicine; PCP Family Medicine; Referring Provider Obstetrics & Gynecology; Visit Provider Obstetrics & Gynecology
DX: Z34.93 Encounter for supervision of normal pregnancy, unspecified, third trimester (principal); Z36.9 Encounter for antenatal screening, unspecified
CPT/HCPCS: 76816

== ENCOUNTER 2019-03-30 15:50 | Outpatient (CLI) | payer OTHER, SELFPAY ==
[2019-03-30 15:59] VITALS: BMI 44.9
--- NOTE | 2019-03-31 18:05 | OB.TRI.NOTE ---
History of Present Illness Date of Service: 03/30/19 Was patient seen by the physician?: No Reason For Visit: NST Date of Service: 03/30/19 Final APRIL: 05/05/19 Final APRIL Source: US <20 weeks Gestational age: 34 Weeks and 6 Days History of Present Illness: 28 yo female with SGA fetus 7th% at last sono. Presents for scheduled NST. Allergies No Known Allergies Allergy (Verified 03/23/19 17:11) NST - FHR Rate Baby A Baseline: 120-130s avg with accels to 160s occ VD Variability:: Moderate Accelerations:: 15 x 15 Decelerations:: Variable - less then 10 sec , tobin to 100 bpm. NST Reactive:: Yes, Appropriate for gestational age FHR Category:: Category I Uterine Activity:: no regular UCs Impression/Plan 34 6/7 wk EGA SGA Reactive NST Home Keep ofc appts as planned and scheduled NSTs Return to hospital if inc s/sx of labor.
== END 2019-03-30 16:55 | disposition home or self-care (01) ==
LOC: WPOUT 15:54 → WP 15:55
PROVIDERS: Family Provider Family Medicine; PCP Family Medicine; Referring Provider Obstetrics & Gynecology; Visit Provider Obstetrics & Gynecology
DX: O36.5930 Maternal care for other known or suspected poor fetal growth, third trimester, not applicable or unspecified (principal); Z3A.34 34 weeks gestation of pregnancy
CPT/HCPCS: 59025; 59050; 99218; G0378

== ENCOUNTER 2019-04-07 17:58 | Outpatient (CLI) | payer OTHER, SELFPAY ==
[2019-04-07 18:08] VITALS: BMI 44.4
--- NOTE | 2019-04-08 07:20 | OB.TRI.NOTE ---
History of Present Illness Date of Service: 04/07/19 Was patient seen by the physician?: No Reason For Visit: NST Date of Service: 04/07/19 Final APRIL: 05/05/19 Final APRIL Source: US <20 weeks Gestational age: 36 Weeks and 0 Days History of Present Illness: 28 yo female with SGA fetus, lsat sono at 7th% Normal SUMANTH For twice weekly NST Allergies No Known Allergies Allergy (Verified 04/07/19 18:12) NST - FHR Rate Baby A Baseline: 110-120 avg with accels Variability:: Moderate Accelerations:: 15 x 15 Decelerations:: None NST Reactive:: Yes, Appropriate for gestational age FHR Category:: Category I Uterine Activity:: no UCs Impression/Plan 36 wk SGA, now at 7th% NST reactive Continue twice weekly NST Ofc appt as scheduled
== END 2019-04-07 18:35 | disposition home or self-care (01) ==
LOC: WPOUT 18:04 → OBT 18:07
PROVIDERS: Family Provider Family Medicine; PCP Family Medicine; Visit Provider Obstetrics & Gynecology
DX: O36.5930 Maternal care for other known or suspected poor fetal growth, third trimester, not applicable or unspecified (principal); Z3A.36 36 weeks gestation of pregnancy
CPT/HCPCS: 59025

== ENCOUNTER → 2019-04-08 09:56 | Outpatient (CLI) | payer OTHER, SELFPAY ==
[2019-04-07 18:08] VITALS: BMI 44.4
== END ==
PROVIDERS: Visit Provider Obstetrics & Gynecology
DX: Z36.85 Encounter for antenatal screening for Streptococcus B (principal)
CPT/HCPCS: 87081

== ENCOUNTER 2019-04-13 09:25 | Outpatient (CLI) | payer OTHER, SELFPAY ==
[2019-04-13 09:50] VITALS: BMI 44.9
--- NOTE | 2019-04-14 07:59 | OB.TRI.NOTE ---
History of Present Illness Date of Service: 04/13/19 Was patient seen by the physician?: No Reason For Visit: NST Date of Service: 04/13/19 Final APRIL: 05/05/19 Final APRIL Source: US <20 weeks Gestational age: 36 wks 6 days History of Present Illness: 28 yo with SGA fetus 7th%... for scheduled NST Allergies No Known Allergies Allergy (Verified 04/13/19 09:51) NST - FHR Rate Baby A Baseline: 110-120s avg variability. Accels noted. Variability:: Moderate Accelerations:: 15 x 15 Decelerations:: None, Early NST Reactive:: Yes, Appropriate for gestational age FHR Category:: Category I Uterine Activity:: NO UCs noted Impression/Plan 36 6/7 wk SGA for scheduled NST NST reactive Continue NSTs as planned, and office visits weekly
== END 2019-04-13 10:15 | disposition home or self-care (01) ==
LOC: WPOUT 09:29 → WP 09:30
PROVIDERS: Referring Provider Obstetrics & Gynecology; Visit Provider Obstetrics & Gynecology
DX: O36.5930 Maternal care for other known or suspected poor fetal growth, third trimester, not applicable or unspecified (principal); Z3A.36 36 weeks gestation of pregnancy
CPT/HCPCS: 59025; 59050; 99218; G0378

== ENCOUNTER 2019-04-22 14:15 | Outpatient (CLI) | payer OTHER, SELFPAY ==
[2019-04-22 14:50] VITALS: BMI 44.4
--- NOTE | 2019-04-23 17:41 | OB.TRI.NOTE ---
History of Present Illness Date of Service: 04/22/19 Was patient seen by the physician?: No Reason For Visit: NON STRESS TEST Date of Service: 04/22/19 Final APRIL: 05/05/19 Final APRIL Source: US <20 weeks Gestational age: 38 Weeks and 1 Days History of Present Illness: 89 yo female for scheduled NST. SGA on sono. Allergies No Known Allergies Allergy (Verified 04/22/19 14:51) NST - FHR Rate Baby A Baseline: 130-140s avg variability. accels. Variability:: Moderate Accelerations:: 15 x 15 Decelerations:: None NST Reactive:: Yes, Appropriate for gestational age FHR Category:: Category I Uterine Activity:: rare UC noted Impression/Plan 38 1/7 wk EGA SGA on sono NST reactive Continue NSTs until delivery Keep ofc appt, to Hospital if inc s/sx of labor.
== END 2019-04-22 15:10 | disposition home or self-care (01) ==
LOC: WPOUT 14:23 → WP 14:24
PROVIDERS: Visit Provider Obstetrics & Gynecology
DX: O36.5930 Maternal care for other known or suspected poor fetal growth, third trimester, not applicable or unspecified (principal); Z3A.38 38 weeks gestation of pregnancy
CPT/HCPCS: 59025; 99218; G0378

== ENCOUNTER 2019-05-01 10:44 | Outpatient (CLI) | payer OTHER, SELFPAY ==
[2019-05-01 12:02] VITALS: BMI 44.6
--- NOTE | 2019-05-07 08:26 | OB.TRI.NOTE ---
History of Present Illness Date of Service: 05/01/19 Was patient seen by the physician?: No Reason For Visit: NST Date of Service: 05/01/19 Final APRIL: 05/05/19 Final APRIL Source: US <20 weeks Gestational age: 39 Weeks and 3 Days History of Present Illness: 29 yo female with SGA fetus on sono. Last EFW 7th%. For NST Allergies No Known Allergies Allergy (Verified 04/22/19 14:51) NST - FHR Rate Baby A Baseline: 110-120s avg with accels 150s Variability:: Moderate Accelerations:: 15 x 15 Decelerations:: None NST Reactive:: Yes, Appropriate for gestational age FHR Category:: Category I Uterine Activity:: rare UC. Impression/Plan 39 3/7 wk EGA NST reactive Keep scheduled appts for PNV, NSTs twice weekly To [facility] if inc s/sx of labor.
--- NOTE | 2019-05-07 08:30 | OB.TRI.HP_ITS ---
History of Present Illness Date of Service: 05/01/19 Was patient seen by the physician?: No Reason For Visit: NST Date of Service: 05/01/19 Final APRIL: 05/05/19 Final APRIL Source: US <20 weeks Gestational age: 39 Weeks and 3 Days History of Present Illness: 29 yo female with SGA fetus on sono. Last EFW 7th%. For NST Allergies No Known Allergies Allergy (Verified 04/22/19 14:51) NST - FHR Rate Baby A Baseline: 110-120s avg with accels 150s Variability:: Moderate Accelerations:: 15 x 15 Decelerations:: None NST Reactive:: Yes, Appropriate for gestational age FHR Category:: Category I Uterine Activity:: rare UC. Impression/Plan 39 3/7 wk EGA NST reactive Keep scheduled appts for PNV, NSTs twice weekly To [facility] if inc s/sx of labor.
== END 2019-05-01 11:30 | disposition home or self-care (01) ==
PROVIDERS: Referring Provider Obstetrics & Gynecology; Visit Provider Obstetrics & Gynecology
DX: O36.5930 Maternal care for other known or suspected poor fetal growth, third trimester, not applicable or unspecified (principal); Z3A.39 39 weeks gestation of pregnancy
CPT/HCPCS: 59025; 59050; 99218; G0378

== ENCOUNTER 2019-05-08 19:00 | Inpatient (IN) | payer OTHER, SELFPAY ==
[2019-05-08 19:20] VITALS: BMI 44.4
[2019-05-08] MEDS: 0.9% Saline Lock 10 ML Syringe IV (19:53)
[2019-05-08 20:06] LABS: Absolute Lymphocyte Count 1.79 X10^3/ul (0.83-4.51); Basophil# 0.02 X10^3/uL; Basophil% 0.2 % (0-1); Eosinophil# 0.04 X10^3/uL; Eosinophils% 0.4 % (0-5); Hematocrit 34.3 % (37-47); Hemoglobin 11.5 g/dl (12.0-15.0); Lymphocyte # 1.79 X10^3/ul (4.0); Lymphocyte % 17.1 % (19-41); Mean Corp Hgb Conc 33.5 g/gl (32-36); Mean Corpuscular Hgb 28.8 pg (27.0-32.0); Mean Platelet Vol. 10.7 fl (6.2-12.0); Monocyte# 0.58 X10^3/uL; Monocyte% 5.6 % (0-10); Neutrophil % 76.5 % (47-70); Platelet Count 291 K/mm3 (150-450); RBC Distribution Width CV 13.1 % (11.6-14.6); RBC Distribution Width SD 41.4 fl (35.1-43.9); Red Blood Count 3.99 M/mm3 (4.2-5.4); White Blood Count 10.5 K/mm3 (4.4-11.0)
[2019-05-08 20:07] LABS: POSITIVE COUNT NO; POSITIVE DIFFERENTIAL NO; POSITIVE MORPHOLOGY NO
--- NOTE | 2019-05-08 21:37 | PCM.HPOB.BLA ---
History and Physical Date of Admission: 05/08/19 OB HISTORY AND PHYSICAL EXAMINATION History of this : 29 yo female Ab0 with EDC 05/05/2019 by 11w Ultrasound, presents to Labor and Delivery for elective induction of labor care remarkable for - O positive RI. GBS negative. 1.) SGA, on ultrasound at [facility] [place]. Fundal heights WNL last sono 7th% Pertinent Past Medical History: None. Allergies: NKDA Medications: During - + DHA 28 mg iron- 975 mcg-200 mg combo pack Review of Systems: Rare UC noted. not painful. Neg ROM. Neg VB. PHYSICAL EXAMINATION General Appearence: 29 yo female in no acute distress Vital Signs: AF, VSS Heart: RRR without rubs or gallops Lungs: CTA x 2 Breasts: deferred Abdomen: gravid Pelvis: Cervix: FT in office. Presentation: cephalic Station: high Fetus: Size: AGA Movement: present Heart: 130-140s avg variability. Accels. reassuring, category I tracing Rare UC noted Impression /Plan: female. GBS negative. Intrauterine . 40 3/7 wk elective induction of labor. Unfavorable cervix. Cytotec induction overnight. to AROM, Pitocin prn See Progress Notes for Changes: Physician's Signature: Date:
--- NOTE | 2019-05-08 21:42 | HP.PCM_ITS ---
History and Physical Date of Admission: 05/08/19 OB HISTORY AND PHYSICAL EXAMINATION History of this : 29 yo female Ab0 with EDC 05/05/2019 by 11w Ultrasound, presents to Labor and Delivery for elective induction of labor care remarkable for - O positive RI. GBS negative. 1.) SGA, on ultrasound at [facility]. Fundal heights WNL last sono 7th% Pertinent Past Medical History: None. Allergies: NKDA Medications: During - + DHA 28 mg iron- 975 mcg-200 mg combo pack Review of Systems: Rare UC noted. not painful. Neg ROM. Neg VB. PHYSICAL EXAMINATION General Appearence: 29 yo female in no acute distress Vital Signs: AF, VSS Heart: RRR without rubs or gallops Lungs: CTA x 2 Breasts: deferred Abdomen: gravid Pelvis: Cervix: FT in office. Presentation: cephalic Station: high Fetus: Size: AGA Movement: present Heart: 130-140s avg variability. Accels. reassuring, category I tracing Rare UC noted Impression /Plan: female. GBS negative. Intrauterine . 40 3/7 wk elective induction of labor. Unfavorable cervix. Cytotec induction overnight. to AROM, Pitocin prn See Progress Notes for Changes: Physician's Signature: Date:
[2019-05-09] MEDS: Oxytocin 30 units/NS 500 ml 30 UNITS/500 ML IV.SOLN IV (06:34)
[2019-05-09] MEDS: 0.9% Saline Lock 10 ML Syringe IV ×2 (06:36→14:05)
[2019-05-09] MEDS: Lactated Ringers 1,000 ML 50 ML IV ×2 (06:36→07:51)
--- NOTE | 2019-05-09 07:16 | PCM.PN.BLA ---
Progress Note 40 4/7 wk induction Feeling some cramping overnight. Plans to get epidural prior to AROM. S/P two doses Cytotec now on Pitocin AVSS Pitocin at 2 mIU/min CX: /-3 last check @ 0628 EFM 120-130s avg variability Accels noted. Category I tracing. UCx q 4-7 mins A/P: 40 4/7 wk induction. Continue Pitocin with inc per protocol. Watch progress, descent. Plans epidural. AROM then after epidural.
[2019-05-09] MEDS: fentaNYL-bupivacaine (epidural) 100 ML BAG EPIDURAL (08:17)
--- NOTE | 2019-05-09 09:33 | NURSING ---
Dr. Azevedo in OR procedure. Dr. Gonzalez called in.
[2019-05-09] MEDS: Oxytocin 30 units/NS 500 ml 30 UNITS/500 ML IV.SOLN 334 UNITS IV (11:55)
--- NOTE | 2019-05-09 12:21 | PCM.DCVAG ---
Discharge Diet: No Restrictions Discharge Activity: May Shower, May Take a Tub Bath May resume sexual activity in: 4-6 weeks Additional Activity Instructions:: Nothing in the vagina for 4-6 weeks. You may return to work/school in 6 weeks. Additional Instructions: If you experience any of the following, contact your healthcare provider. Bleeding that soaks a pad every hour for 2 hours Fever 100.4 or higher Unrelieved abdominal pain Problems urinating (including inability to urinate or burning while urinating). Visual changes Severe headache Flu-like symptoms Pain or redness in one of both of your breasts Pain, warmth, tenderness or swelling in your legs, especially the calf area Frequent nausea and vomiting Symptoms of depression or anxiety If you experience any of the following, call 911 or go to the nearest Emergency Room. Chest pain Problems breathing Seizure activity Partial or complete paralysis of a body part, slurred speech, weakness or drooping of the face, or a sudden inability to walk or hold your balance Allergies/Adverse Reactions: Allergies No Known Allergies Allergy (Verified 05/08/19 19:20) Medications to take at Discharge Vits [Prenatabs FA] 1 tablet PO DAILY 04/10/17 Please Follow Up With: Verónica Raygoza MD - [phone] When: Call to make an appointment with your doctor in 6 weeks. Primary Care Physician: Sergio Victoria MD [Primary Care Provider] - Test Results: Test results from this visit will be discussed in further detail at your follow-up appointment, if applicable. Proposed Discharge Date: 05/10/19
--- NOTE | 2019-05-09 12:22 | DCINST_ITS ---
Discharge Diet: No Restrictions Discharge Activity: May Shower, May Take a Tub Bath May resume sexual activity in: 4-6 weeks Additional Activity Instructions:: Nothing in the vagina for 4-6 weeks. You may return to work/school in 6 weeks. Additional Instructions: If you experience any of the following, contact your healthcare provider. * Bleeding that soaks a pad every hour for 2 hours * Fever 100.4 or higher * Unrelieved abdominal pain * Problems urinating (including inability to urinate or burning while urinating). * Visual changes * Severe headache * Flu-like symptoms * Pain or redness in one of both of your breasts * Pain, warmth, tenderness or swelling in your legs, especially the calf area * Frequent nausea and vomiting * Symptoms of depression or anxiety If you experience any of the following, call 911 or go to the nearest Emergency Room. * Chest pain * Problems breathing * Seizure activity * Partial or complete paralysis of a body part, slurred speech, weakness or drooping of the face, or a sudden inability to walk or hold your balance Allergies/Adverse Reactions: Allergies No Known Allergies Allergy (Verified 05/08/19 19:20) Medications to take at Discharge Vits [Prenatabs FA] 1 tablet PO DAILY 04/10/17 Please Follow Up With: Verónica Raygoza MD - [phone] When: Call to make an appointment with your doctor in 6 weeks. Primary Care Physician: Sergio Victoria MD [Primary Care Provider] - Test Results: Test results from this visit will be discussed in further detail at your follow- up appointment, if applicable. Proposed Discharge Date: 05/10/19
--- NOTE | 2019-05-09 12:22 | PCM.OPRPT ---
Vaginal Delivery Maternal Presentation: Medically Indicated Induction - 40+ wks , elective (prior to 41 wks) 40 3/7 wk induction unfavorable cervix Method of Induction: Cervidil, Pitocin, Amniotomy Amniotic Membrane Rupture Type: Artificial Rupture of Membrane time: 853 Amniotic Fluid Description: Clear Final APRIL: 05/05/19 Final APRIL Source: US <20 weeks Gestational age: 40 Weeks and 4 Days Date of Procedure: 05/09/19 Pre-Operative Diagnosis: 40 3/7 wk for induction Post-Operative Diagnosis: 40 4/7 wk Surgery/ Procedure Performed: Spontaneous Vaginal Delivery Anesthesiologist: Oswaldo Avitia MD Type of Anesthesia: Epidural Description of Procedure: of a eller viable female over intact perineum. head delivered VERNELL. OP and nares bulb suctioned on perineum. No nuchal cord. Shoulders delivered spontaneously. infant to maternal abdomen with spont cry. Cord clamped times two and cut. Cord blood collected for typing. Infant Ap 8/9. PP exam: 2nd deg posterior vaginal to perineal;l laceration. Repaired under epidural tot hemostatic and intact no other lacerations Placenta delivered by spont expulsion, expression. 3V cord , normal appearing and intact with trailing membranes EBL 2-- cc Pt and tolerated delivery well. To recovery , stable condition Ray juancarlos and needle counts correct times two. Presentation: Vertex, VERNELL Placental Delivery Description: Spontaneous, Expressed Placenta Disposition: [facility] Cord Vessel Description: 3 Vessels Nuchal Cord Compression: Without compression Cord Entanglement: Around neck x 1, loose Drain: Gage to straight drain Estimated Blood Loss: 200 Infant A gender: Female (1 minute): 8 (5 minute): 9 Episiotomy Description: None Laceration: Midline, Perineal Extension/lac, Vaginal Extension/lac, 2nd degree Medications given after delivery: IV Pitocin Complications: None
[2019-05-09] MEDS: Oxytocin 30 units/NS 500 ml 30 UNITS/500 ML IV.SOLN 167 UNITS IV (12:30)
[2019-05-09] MEDS: Ibuprofen 600 MG Tablet PO ×2 (16:16→23:23)
[2019-05-09] MEDS: Senna/Docusate Sodium 1 Tablet PO (16:17)
--- NOTE | 2019-05-09 17:45 | NURSING ---
1500 Gage discontinued, 600ml dark hung urine noted. Jackelyn pad changed for mod amt aaliyahra kiarra. FF u-1. Able to move and feel left leg now. States she feels good.
[2019-05-09 19:35] VITALS: BP 134/75; PULSE 85; RESP 16; TEMP 36.7
[2019-05-09 23:27] VITALS: BP 124/58; PULSE 77; RESP 16; TEMP 36.7
[2019-05-10 03:50] VITALS: BP 126/63; PULSE 76; RESP 16; TEMP 36.4
--- NOTE | 2019-05-10 07:42 | PCM.PN.OB ---
Subjective: PPD#1 Doing well. Nursing. baby with possible elevated bilirubin. Breast feeding. Minimal pain. No concerns voiced. Plans to stay until tomorrow. - Physical Exam General: Alert, Oriented x3, Cooperative, No apparent distress HEENT: Atraumatic Neck: Supple Abdomen: Soft - Fundus firm NT inferior to umbilicus Psych/Mental Status: Normal Affect Vital Signs Temp Pulse Resp BP 97.6 F L 76 16 126/63 H 05/10/19 03:50 05/10/19 03:50 05/10/19 03:50 05/10/19 03:50 Weight: 124.9 kg Body Mass Index (BMI) 44.4 Intake and Output for Last 24 Hours 05/08/19 05/09/19 05/10/19 23:59 23:59 23:59 Output Total 225 / 225 800 / 800 Balance -225 / -225 -800 / -800 Medical Necessity - Tobacco Use Smoking Status: Never smoker Assessment/Plan PPD#1 Stable pp. Continue routine pp care
[2019-05-10 07:50] VITALS: BP 126/68; PULSE 70; RESP 16; TEMP 36.1
[2019-05-10] MEDS: Ibuprofen 600 MG Tablet PO ×2 (07:59→20:03)
[2019-05-10] MEDS: Prenatal Vits Tablet 1 TABLET PO (10:11)
[2019-05-10 16:42] VITALS: BP 111/67; PULSE 78; RESP 16; TEMP 36.2
[2019-05-10 20:12] VITALS: BP 98/74; PULSE 75; RESP 18; TEMP 36.6
[2019-05-11] MEDS: Ibuprofen 600 MG Tablet PO ×2 (02:45→08:32)
[2019-05-11 02:46] VITALS: BP 100/58; PULSE 71; RESP 18; TEMP 36.8
[2019-05-11 08:10] VITALS: BP 117/78; PULSE 82; RESP 16; TEMP 36.6; O2SAT 98
--- NOTE | 2019-05-11 08:26 | PCM.PN.OB ---
Subjective: PPD#2 Doing well. Nursing. Baby s/p frenulectomy. States was nursing ok prior also. Bilirubin is not an issue. outpt f/u planned. Plans to go home today. - Physical Exam General: Alert, Oriented x3, Cooperative, No apparent distress HEENT: Atraumatic Neck: Supple Psych/Mental Status: Normal Affect Vital Signs Temp Pulse Resp BP 98.3 F 71 18 100/58 L 05/11/19 02:46 05/11/19 02:46 05/11/19 02:46 05/11/19 02:46 Oxygen Delivery Method Room Air Weight: 124.9 kg Body Mass Index (BMI) 44.4 Intake and Output for Last 24 Hours 05/09/19 05/10/19 05/11/19 23:59 23:59 23:59 Output Total 800 / 800 Balance -800 / -800 Medical Necessity - Tobacco Use Smoking Status: Never smoker Assessment/Plan PPD#2 Stable pp. Dischg home today. RTO in 6 wk for pp check, prn sooner.
[2019-05-11 10:42] VITALS: BP 117/78; PULSE 82; RESP 16; TEMP 36.6; O2SAT 98
== END 2019-05-11 10:55 | disposition home or self-care (01) | DRG 807 ==
PROVIDERS: Admitting Provider Obstetrics & Gynecology; Family Provider Family Medicine; PCP Family Medicine; Visit Provider Obstetrics & Gynecology
DX: O36.5930 Maternal care for other known or suspected poor fetal growth, third trimester, not applicable or unspecified (principal); O69.1XX0 Labor and delivery complicated by cord around neck, with compression, not applicable or unspecified; O70.1 Second degree perineal laceration during delivery; Z3A.40 40 weeks gestation of pregnancy; Z37.0 Single live birth
CPT/HCPCS: 59025; 59050; 85025; 86850; 86900; 99218; J7120; A4216; G0378

== ENCOUNTER → 2021-08-29 | Outpatient (CLI) | payer OTHER, SELFPAY ==
[2021-09-01 19:58] LABS: HPV APTIMA, High Risk Negative (Negative)
== END | disposition home or self-care (01) ==
LOC: LABSPEC 14:13
PROVIDERS: PCP Obstetrics & Gynecology; Referring Provider Physician Assistant; Visit Provider Physician Assistant
DX: Z12.4 Encounter for screening for malignant neoplasm of cervix (principal)
CPT/HCPCS: 87624; 88175; G0145

== ENCOUNTER 2022-02-07 14:20 | Outpatient (CLI) | payer OTHER, SELFPAY ==
[2022-02-07 14:41] VITALS: BP 130/87; PULSE 82; RESP 16; TEMP 36.8; O2SAT 97; BMI 45.1
[2022-02-07] MEDS: 0.9% Saline Lock 10 ML Syringe IV (14:41)
[2022-02-07 15:29] VITALS: BP 131/76; PULSE 76; RESP 16; TEMP 36.9; O2SAT 98
[2022-02-07 16:29] VITALS: BP 125/81; PULSE 76; RESP 16; TEMP 37.1; O2SAT 100
== END 2022-02-07 23:59 | disposition home or self-care (01) ==
LOC: MS3OUT 14:20 → MS3 14:21
PROVIDERS: PCP Obstetrics & Gynecology; Referring Provider Nurse Practitioner Adult Health; Visit Provider Nurse Practitioner Adult Health
DX: U07.1 COVID-19 (principal)
CPT/HCPCS: J7050; M0247; A4216; Q0247

== ENCOUNTER → 2022-05-31 | Outpatient (CLI) | payer OTHER, SELFPAY ==
[2022-05-31 17:33] LABS: Amphetamine Urine VISTA NEGATIVE (<1000 ng/mL); Barbiturate Urine VISTA NEGATIVE (< 200 ng/mL); Benzodiazepine Urine VISTA NEGATIVE (< 200 ng/mL); Cocaine Urine VISTA NEGATIVE (< 300 ng/mL); Ecstacy Urine VISTA NEGATIVE (< 500 ng/mL); Methadone Urine VISTA NEGATIVE (< 300 ng/mL); PCP Urine VISTA NEGATIVE (< 25 ng/mL); THC Urine VISTA NEGATIVE (< 50 ng/mL); Vista UDS pH Range 4
[2022-06-05 09:19] LABS: Chlamydia By Nucleic Acid AMP Negative (Negative)
[2022-06-05 16:53] LABS: Gonococcus By Nucleic Acid AMP Negative (Negative)
== END | disposition home or self-care (01) ==
LOC: LABSPEC 16:35
PROVIDERS: Visit Provider Obstetrics & Gynecology
DX: Z34.90 Encounter for supervision of normal pregnancy, unspecified, unspecified trimester (principal)
CPT/HCPCS: 80307; 87086; 87088; 87491; 87591

== ENCOUNTER → 2022-07-03 | Outpatient (CLI) | payer OTHER, SELFPAY ==
[2022-07-03 08:22] LABS: Absolute Lymphocyte Count 1.47 X10^3/uL (0.83-4.51); Absolute Neutrophil Count 7.5 X10^3/uL (2.0-7.7); Basophil# 0.04 X10^3/uL; Basophil% 0.4 % (0-1); Eosinophil# 0.07 X10^3/uL; Eosinophils% 0.7 % (0-5); Hemoglobin 12.3 g/dL (12.0-15.0); Lymphocyte # 1.47 X10^3/ul (0.83-4.51); Lymphocyte % 15.1 % (19-41); Mean Corp Hgb Conc 33.2 g/dL (32-36); Mean Corpuscular Hgb 28.5 pg (27.0-32.0); Mean Corpuscular Volume 85.8 fL (81-99); Mean Platelet Vol. 9.6 fl (6.2-12.0); Monocyte# 0.59 X10^3/uL; Monocyte% 6.1 % (0-10); NRBC Flagged by Analyzer 0 % (0-5); Neutrophil # 7.53 X10^3/uL (2.7-7.7); Neutrophil % 77.3 % (47-70); Platelet Count 301 K/mm3 (150-450); RBC Distribution Width CV 13.2 % (11.6-14.6); RBC Distribution Width SD 41.8 fl (35.1-43.9); Red Blood Count 4.31 M/mm3 (4.2-5.4); White Blood Count 9.7 K/mm3 (4.4-11.0)
[2022-07-03 08:39] LABS: Glucose Challenge Gest 1H 50g 169 mg/dL (70-140)
[2022-07-03 09:24] LABS: HIV - WCH Non-Reactive (Nonreactive); Hepatitis B Surface Antigen Non-Reactive (Nonreactive); Hepatitis C Antibody Non-Reactive (Nonreactive); Rubella IgG Reactive (Nonreactive); Syphilis Antibodies Non-reactive
== END | disposition home or self-care (01) ==
LOC: LAB 07:32
PROVIDERS: PCP Family Medicine; Referring Provider Obstetrics & Gynecology; Visit Provider Obstetrics & Gynecology
DX: O99.210 Obesity complicating pregnancy, unspecified trimester (principal); Z3A.00 Weeks of gestation of pregnancy not specified
CPT/HCPCS: 36415; 82950; 85025; 86703; 86762; 86780; 86803; 86850; 86900; 86901; 87340

== ENCOUNTER → 2022-07-10 | Outpatient (CLI) | payer OTHER, SELFPAY ==
[2022-07-10 08:00] LABS: Glucose GTT-Gestation. Fasting 93 mg/dL (<105)
[2022-07-10 08:54] LABS: Glucose GTT-Gestational 1 Hr 184 mg/dL (<190)
[2022-07-10 09:45] LABS: Glucose GTT-Gestational 2 Hr 161 mg/dL (<165)
[2022-07-10 11:03] LABS: Glucose GTT-Gestational 3 Hr 79 L (<145)
== END | disposition home or self-care (01) ==
LOC: LAB 06:59
PROVIDERS: PCP Family Medicine; Visit Provider Obstetrics & Gynecology
DX: Z13.1 Encounter for screening for diabetes mellitus (principal)
CPT/HCPCS: 36415; 82951; 82952

== ENCOUNTER 2022-07-23 07:28 | Outpatient (RCR) | payer OTHER, SELFPAY | END 2022-08-01 23:59 | LOC: DC 07:28 | PROVIDERS: PCP Family Medicine; Referring Provider Nurse Practitioner Women's Health; Visit Provider Nurse Practitioner Women's Health | DX: O24.419 Gestational diabetes mellitus in pregnancy, unspecified control (principal); Z3A.00 Weeks of gestation of pregnancy not specified | CPT/HCPCS: 97802 ==

== ENCOUNTER → 2022-08-27 | Outpatient (CLI) | payer OTHER, SELFPAY ==
--- NOTE | 2022-08-27 12:26 | US_ITS ---
STUDY: SECOND AND THIRD TRIMESTER OBSTETRICAL ULTRASOUND REASON FOR EXAM: Female, 32 years old anatomy LMP: 04/10/2022. TECHNIQUE: Transabdominal and Transvaginal TECHNICAL QUALITY: Adequate. PRIOR ULTRASOUND: None. FINDINGS: There is a single intrauterine fetus. The fetus is in a breech presentation. There is demonstrated cardiac activity with a heart rate of 133 bpm. There is a normal amniotic fluid volume. The largest amniotic fluid pocket measures 3.3 cm x 2.5 cm. The amniotic fluid index (SUMANTH) is within normal limits. The placenta is posterior in location and is not low lying. There are Grade 0 placental changes. The cervix measures 4.7 cm in length. The bilateral adnexal regions are normal. BIOMETRY: BPD: 4.15 cm: 18 weeks, 4 days HC: 16.31 cm: 19 weeks, 1 days AC: 15.05 cm: 20 weeks, 2 days FL: 3.2 cm: 20 weeks, 0 days CI: 73% FL/BPD: 77% FL/HC: FL/AC: 21% HC/AC: 1.08 age by current US: 19 weeks, 2 days. APRIL by current US: 01/19/2023. Estimated weight: 323 grams, +/- 48 grams, 50 %. Age by LMP: 19 weeks, 6 days. APRIL by LMP: 01/15/2023. ANATOMY: Gender: Female Cranium: Normal lateral ventricles. Normal choroid plexus. Normal cerebellum. Normal cisterna magna. Normal face, nose and lips. Chest: Normal 4-chamber heart. Abdomen/Pelvis: Normal diaphragm. Normal stomach. Normal abdominal wall. Normal cord insertion. Normal 3 vessel cord. Normal kidneys. Normal bladder. Spine: Normal cervical spine. Normal thoracic spine. Normal lumbar spine. Normal sacrum. Extremities: Normal bilateral upper extremities. Normal bilateral lower extremities. IMPRESSION: Single live intrauterine gestation with a mean gestational age of 19 weeks and 2 days. Electronically Signed: Francisco Simpson MD at 9:57 EDT , STUDY: FIRST TRIMESTER OBSTETRICAL ULTRASOUND REASON FOR EXAM: Female, 32 years old. Cervical length. LMP: 04/10/2022 TECHNIQUE: Transvaginal TECHNICAL QUALITY: Adequate. PRIOR ULTRASOUND: None. FINDINGS: Cervical length measures 4.7 cm. US/OB Anatomy Scan IMPRESSION: Cervical length measures 4.7 cm. Electronically Signed: Francisco Simpson MD at 9:57 EDT ,
== END | disposition home or self-care (01) ==
LOC: OPUS 12:25
PROVIDERS: PCP Family Medicine; Visit Provider Obstetrics & Gynecology
DX: O09.92 Supervision of high risk pregnancy, unspecified, second trimester (principal); Z3A.19 19 weeks gestation of pregnancy
CPT/HCPCS: 76805; 76817

== ENCOUNTER → 2022-10-23 | Outpatient (CLI) | payer OTHER, SELFPAY ==
[2022-10-23 08:32] LABS: Absolute Lymphocyte Count 1.94 X10^3/uL (0.83-4.51); Absolute Neutrophil Count 7.7 X10^3/uL (2.0-7.7); Basophil# 0.05 X10^3/uL; Basophil% 0.5 % (0-1); Eosinophil# 0.07 X10^3/uL; Eosinophils% 0.7 % (0-5); Hemoglobin 12.2 g/dL (12.0-15.0); Lymphocyte # 1.94 X10^3/ul (0.83-4.51); Lymphocyte % 18.5 % (19-41); Mean Corp Hgb Conc 33.9 g/dL (32-36); Mean Corpuscular Hgb 29.5 pg (27.0-32.0); Mean Corpuscular Volume 87.2 fL (81-99); Mean Platelet Vol. 9.8 fl (6.2-12.0); Monocyte# 0.64 X10^3/uL; Monocyte% 6.1 % (0-10); NRBC Flagged by Analyzer 0 % (0-5); Neutrophil # 7.68 X10^3/uL (2.7-7.7); Neutrophil % 73.2 % (47-70); Platelet Count 289 K/mm3 (150-450); RBC Distribution Width CV 13.2 % (11.6-14.6); RBC Distribution Width SD 41.8 fl (35.1-43.9); Red Blood Count 4.13 M/mm3 (4.2-5.4); White Blood Count 10.5 K/mm3 (4.4-11.0)
== END | disposition home or self-care (01) ==
LOC: LAB 08:19
PROVIDERS: PCP Family Medicine; Referring Provider Nurse Practitioner Women's Health; Visit Provider Nurse Practitioner Women's Health
DX: Z34.90 Encounter for supervision of normal pregnancy, unspecified, unspecified trimester (principal)
CPT/HCPCS: 36415; 85025

== ENCOUNTER → 2022-12-20 | Outpatient (CLI) | payer OTHER, SELFPAY ==
--- NOTE | 2022-12-20 13:32 | US_ITS ---
STUDY: SECOND AND THIRD TRIMESTER OBSTETRICAL ULTRASOUND - LIMITED REASON FOR EXAM: Female, 32 years old. growth PRIOR ULTRASOUND: 08.27.22. TECHNIQUE: Transabdominal TECHNICAL QUALITY: Adequate. FINDINGS: There is a single intrauterine fetus. The fetus is in a cephalic presentation. There is demonstrated cardiac activity with a heart rate of 136 bpm. There is a normal amniotic fluid volume. The largest amniotic fluid pocket measures 5.1 cm. The amniotic fluid index (SUMANTH) is 15.6 cm. The placenta is posterior in location and is not low lying. There are Grade 1 placental changes. The cervix is obscured by overlying bowel gas and cannot be identified. . BIOMETRY: BPD: 88 mm: 35 weeks, 4 days HC: 316 mm: 35 weeks, 5 days AC: 314 mm: 35 weeks, 2 days FL: 7 mm: 36 weeks, 0 days CI: 81 FL/AC: 22 FL/BPD: 80 HC/AC: 1.01 age by current US: 35 weeks, 2 days. APRIL by current US: 2.21.23. Estimated weight: 2736 grams, +/- 410 grams, 36 %. age by prior US: 35 weeks, 3 days. APRIL by prior US: 2.8.23. Age by LMP: 36 weeks, 2 days. APRIL by LMP: 2.14.23. ANATOMY: Gender: NA Cranium: Normal lateral ventricles. Normal choroid plexus. Normal cerebellum. Normal cisterna magna. Normal face, nose and lips. Chest: Normal 4-chamber heart. Abdomen/Pelvis: Normal diaphragm. Normal stomach. Normal abdominal wall. Normal cord insertion. Normal 3 vessel cord. Normal kidneys. Normal bladder. Spine: Normal cervical spine. Normal thoracic spine. Normal lumbar spine. Normal sacrum. Extremities: Normal bilateral upper extremities. Normal bilateral lower extremities. US/OB Limited With Biometrics IMPRESSION: There is a single live intrauterine with a heart rate of 136 bpm. age by current US: 35 weeks, 2 days. APRIL by current US: 2.21.23. Estimated weight: 2736 grams, +/- 410 grams, 36 %. Electronically Signed: Rodríguez Stewart MD at 17:52 EST ,
== END | disposition home or self-care (01) ==
LOC: OPUS 13:31
PROVIDERS: PCP Family Medicine; Visit Provider Obstetrics & Gynecology
DX: Z36.89 Encounter for other specified antenatal screening (principal); Z87.59 Personal history of other complications of pregnancy, childbirth and the puerperium
CPT/HCPCS: 76816

== ENCOUNTER → 2022-12-21 | Outpatient (CLI) | payer OTHER, SELFPAY | END | disposition home or self-care (01) | LOC: LABSPEC 12:26 | PROVIDERS: PCP Family Medicine; Visit Provider Obstetrics & Gynecology | DX: Z36.85 Encounter for antenatal screening for Streptococcus B (principal) | CPT/HCPCS: 87081 ==

== ENCOUNTER 2023-01-17 06:55 | Inpatient (IN) | payer OTHER, SELFPAY ==
[2023-01-17] VITALS (54 sets, daily range): BP systolic 105–145; BP diastolic 50–86; PULSE 77–100; TEMP 35.7–36.7; O2SAT 89–100; BMI 49.8
[2023-01-17] MEDS: Lactated Ringers 1,000 ML 50 ML IV (07:35)
--- NOTE | 2023-01-17 07:49 | HP.PCM.OB_ITS ---
HPI - General General Date of Admission: 01/17/23 HPI Narrative KATHI GRIMALDO, is a 32 F who presentsfor IOL secondary to postdates and GDM. Maternal Data Information APRIL Calculator Estimated Delivery Date Method Current WG Current Estimate 01/15/23 Ultrasound #2 40w 2d Other Estimates 01/04/23 LMP (Certain) 41w 6d 01/23/23 Ultrasound #1 39w 1d PFSH PFS Home Medications docosahexaenoic acid 200 mg capsule ( DHA) mg PO 05/31/22 [History Last Taken Unknown] blood sugar diagnostic (True Metrix Glucose Test Strip) #100 ea 07/10/22 [Rx Last Taken Unknown] blood-glucose meter (True Metrix Air Glucose Meter) #1 ea 07/10/22 [Rx Last Taken Unknown] Allergy/AdvReac Type Severity Reaction Status Date / Time No Known Allergies Allergy Verified 01/11/23 11:35 Surgical History S/P laparoscopic procedure Social History Smoking Status: Never smoker alcohol intake: never substance use type: does not use caffeine: Yes what type of physical activity do you participate in: none seatbelt use: always do you feel safe at home: Yes additional social history: - 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 Date Name GA/Weeks Outcome Route Bth Weight Gen Labor Lgth Anesthesia Del Locatn Provider FOB 04/14/17 Nena 41 live - full term 7lbs 3oz Female 7hou rs epidural [facility] Dr. Idalmis Guzman 05/09/19 Beverly 40 live - full term 6lbs 3oz Female 4hou rs epidural [facility] Dr. Idalmis Guzman Delivery Date: 04/14/17 Last Updated by: Hollie Decker No issues during or delivery but was on the smaller side. Delivery Date: 05/09/19 Last Updated by: Hollie Decker No issues during or delivery but was on the small side. Visit Details Expected Delivery Route/Plan Labor Preferences- CB/BF classes: no labor support person: Thomas labor intervention preferences: [] pain management options preferred: epidural cut cord/dad catch: cord, mom catch : yes PP control planned: discussed probable vasectomy discussed possible routes of delivery and associated risks: [] special requests: [] Plans Covid status: immune Flu vaccine: no Tdap vaccine: decline Rhogam: na LARC form signed: declined movement and labor precautions reviewed. Problem list reviewed and updated with the most current plan of care details and appropriate orders placed. Relevant counseling for the gestational age provided. Continue routine care and follow up unless otherwise noted in visit notes/problem list details OB Flowsheet Initial Weight: Not Recorded Date -?-?-?-?-?-?-?-?-?-?-?-?- EGA Weight BP Urine Prot -?-?-?-?-?-?-?-?-?-?-?-?- Glucose FHR FuHt Pres Dilation -?-?-?-?-?-?-?-?-?-?-?-?- Effaced St Visit Note 05/31/22 -?-?-?-?-?-?-?-?-?-?-?-?- 7w 2d 295 lb 140/88 -?-?-?-?-?-?-?-?-?-?-?-?- 170 -?-?-?-?-?-?-?-?-?-?-?-?- SM- CRL 5 mm not cons with LMP. plan repeat bp on unit 07/05/22 -?-?-?-?-?-?-?-?-?-?-?-?- 12w 2d 291 lb 2 oz 127/85 Nega tive -?-?-?-?-?-?-?-?-?-?-?-?- Negative -?-?-?-?-?-?-?-?-?-?-?-?- JV- CRL measurin g 12 weeks 2 days. new april given. pt maritza 1 hr needs 3 hr. 07/31/22 -?-?-?-?-?-?-?-?-?-?-?-?- 16w 0d 295 lb 4 oz 130/88 Nega tive -?-?-?-?-?-?-?-?-?-?-?-?- Negative 158 -?-?-?-?-?-?-?-?-?-?-?-?- JV- pt failed he r 3 hr gtt. she spoke with Dr. Vargas and calibration specialist. plan is to monitor fasting and 1 2hr pp per [address] Vargas. 08/27/22 -?-?-?-?-?-?-?-?-?-?-?-?- 19w 6d 295 lb 6 oz 124/85 Nega tive -?-?-?-?-?-?-?-?-?-?-?-?- Negative 145 -?-?-?-?-?-?-?-?-?-?-?-?- JV- no lof, vagi nal bleeding, or cramping, anatomy ultrasound done today. results pending. 09/26/22 -?-?-?-?-?-?-?-?-?-?-?-?- 24w 1d 299 lb 120/78 Negative -?-?-?-?-?-?-?-?-?-?-?-?- Negative 148 -?-?-?-?-?-?-?-?-?-?-?-?- MH-NO VB, LOF. G ood FM. Diet controlled GDM and follows with Dr Vargas 10/23/22 -?-?-?-?-?-?-?-?-?-?-?-?- 28w 0d 299 lb 8 oz 119/79 Nega tive -?-?-?-?-?-?-?-?-?-?-?-?- Negative 141 31 -?-?-?-?-?-?-?-?-?-?-?-?- JV- fasting leve l are 70's 2 hr pp are 80's. no complaints today. good movement. 11/14/22 -?-?-?-?-?-?-?-?-?-?-?-?- 31w 1d 298 lb 2 oz 118/82 Nega tive -?-?-?-?-?-?-?-?-?-?-?-?- Negative 135 31 -?-?-?-?-?-?-?-?-?-?-?-?- JV- glucose leve ls are normal and DR. Vargas is spacing out her testing. plan for weekly nsts at 36 weeks 11/29/22 -?-?-?-?-?-?-?-?-?-?-?-?- 33w 2d 295 lb 4 oz 124/80 Nega tive -?-?-?-?-?-?-?-?-?-?-?-?- Negative 145 33 -?-?-?-?-?-?-?-?-?-?-?-?- MH-No VB, LOF. G ood FM. Glucose readings all normal. 12/14/22 -?-?-?-?-?-?-?-?-?-?-?-?- 35w 3d 300 lb 6 oz 117/76 Nega tive -?-?-?-?-?-?-?-?-?-?-?-?- Negative 129 36 -?-?-?-?-?-?-?-?-?-?-?-?- JV- no lof, vagi nal bleeding, or dec fm. no complaints. growth scan ordered for next week. 12/21/22 -?-?-?-?-?-?-?-?-?-?-?-?- 36w 3d 300 lb 123/79 Negative -?-?-?-?-?-?-?-?-?-?-?-?- Negative 150 39 -?-?-?--?-?-?-?-?-?-?-?-?- SM- no vb lof go od fm no regular ctx 12/28/22 -?-?-?-?-?-?-?-?-?-?-?-?- 37w 3d 300 lb 116/74 Negative -?-?-?-?-?-?-?-?-?-?-?-?- Negative 150 40 -?-?-?-?-?-?-?-?-?-?-?-?- SM- no vb lof go od fm no regular ctx 01/04/23 -?-?-?-?-?-?-?-?-?-?-?-?- 38w 3d 300 lb 126/72 Negative -?-?-?-?-?-?-?-?-?-?-?-?- Negative 140 40 0.5 -?-?-?-?-?-?-?-?-?-?-?-?- Sm- no vb lof go od fm no regular ctx 01/11/23 -?-?-?-?-?-?-?-?-?-?--?-?- 39w 3d 303 lb 2 oz 129/81 Nega tive -?-?-?-?-?-?-?-?-?-?-?-?- Negative 141 43 1 -?-?-?-?-?-?-?-?-?-?-?-?- 50 JV- glu cose levels are well controlled. planning for 40 week IOL. 01/17/23 01/17/23 -?-?-?-?-?-?-?-?-?-?-?-?- 40w 2d 142/81 -?-?-?-?-?-?-?-?-?-?-?-?- -?--?-?-?-?-?-?-?-?-?-?-?- NST FHR Rate Baby A Baseline: 130 Variability:: Moderate Accelerations:: 15 x 15 Decelerations:: None NST Reactive:: Yes FHR Category:: Category I Uterine Activity:: irregular ROS Constitutional Constitutional: Reports systems reviewed and no addt'l complaints, except as documented Eyes Eyes: Denies change in vision ENT HEENT: Reports systems reviewed and no addt'l complaints, except as documented; Denies headache(s) Cardiovascular Cardiovascular: Reports systems reviewed and no addt'l complaints, except as documented; Denies chest pain or dyspnea Respiratory/Chest Respiratory/Chest: Reports systems reviewed and no addt'l complaints, except as documented Gastrointestinal Gastrointestinal: Reports systems reviewed and no addt'l complaints, except as documented; Denies abdominal pain Genitourinary Genitourinary: Reports systems reviewed and no addt'l complaints, except as documented, contractions Details: present (irregular) and movement Details: present; Denies dysuria or genital lesions Musculoskeletal Musculoskeletal: Reports systems reviewed and no addt'l complaints, except as documented Neurologic Neurologic: Reports systems reviewed and no addt'l complaints, except as documented Endocrine Endocrinology: Reports systems reviewed and no addt'l complaints, except as documented Vital Signs Vital Signs Vital Signs: 01/17/23 07:18 01/17/23 07:18 01/17/23 07:22 Temperature 97.9 F Pulse Rate 91 Blood Pressure 142/81 H BP Systolic 142 BP Diastolic 81 Pulse Ox 01/17/23 07:22 01/17/23 07:22 Temperature Pulse Rate 93 Blood Pressure BP Systolic BP Diastolic Pulse Ox 98 Physical Exam Const alert, oriented x3, no apparent distress and healthy appearing HEENT normocephalic and moist oral mucous membranes Head and Scalp: atraumatic Neck full ROM, no lymphadenopathy, supple and thyroid normal General: trachea midline Lymph Lymphatic: no lymphadenopathy noted Chest inspection of chest normal Resp normal respiratory effort Cardio regular rate GI normal to inspection, nondistended, normoactive bowel sounds, soft to palpation and non-tender Inspection: gravid external exam normal Manual OB Exam: estimated gestational size appropriate, presentation cephalic, dilated, effaced and station Extremity normal to inspection General Extremity: Negative for edema Skin no rashes or lesions noted Neuro no focal motor deficits and deep tendon reflexes 2+ bilaterally Motor Exam: strength 5/5 throughout and clonus absent Psych mental status grossly normal Labs Labs Labs: Blood Type O POSITIVE Antibody Screen NEGATIVE Hct 36.0 % (37-47) L Hgb 12.2 g/dL (12.0-15.0) Pap Smear Negative Obstetrics US Syphilis Total Ab Non-reactive Rubella IgG Antibody Reactive (Nonreactive) Hep Bs Antigen Non-Reactive (Nonreactive) Chlamydia DNA (EUGENIE) Negative (Negative) Neisseria gonorrhoeae DNA ([place]UG[place]IE) Negative (Negative) HIV 1&2 Antibody Non-Reactive (Nonreactive) Glucose 1 Hr 50 gm 169 mg/dL (70-140) H Group B Strep DNA Negative (Negative) Rhogam given: No Assessment & Plan (1) Gestational diabetes: COMMENT: refer to Dr.King Jarquin, [facility] slitter scorer checking fasting and 1 2hr pp twice a week reporting to (2) Supervision of high-risk : COMMENT: [id number] APRIL 01/23/23 girl IRMA Nena Paul Thomas (3) History of prior with IUGR : COMMENT: nl growth (4) Obesity affecting : COMMENT: 1 TM GCT. encouraged healthy weight gain (5) : QUALIFIERS: Weeks of gestation: 39 weeks Qualified Code(s): Z3A.39 - 39 weeks gestation of COMMENT: carrier and genetic screening declined. (6) Encounter for induction of labor: PLAN: Plan Patient presents IOL, plan management for with pitocin/AROM. Pain management: plans epidural. GBS negative. Management of any complications: none I have reviewed the [facility] and made any clinically relevant updates.
[2023-01-17 08:04] LABS: Absolute Lymphocyte Count 1.66 X10^3/uL (0.83-4.51); Absolute Neutrophil Count 7.2 X10^3/uL (2.0-7.7); Basophil# 0.04 X10^3/uL; Basophil% 0.4 % (0-1); Eosinophil# 0.06 X10^3/uL; Eosinophils% 0.6 % (0-5); Hemoglobin 10.9 g/dL (12.0-15.0); Lymphocyte # 1.66 X10^3/ul (0.83-4.51); Lymphocyte % 17.3 % (19-41); Mean Corpuscular Hgb 28.8 pg (27.0-32.0); Mean Corpuscular Volume 87.3 fL (81-99); Mean Platelet Vol. 10.7 fl (6.2-12.0); Monocyte# 0.61 X10^3/uL; Monocyte% 6.3 % (0-10); NRBC Flagged by Analyzer 0 % (0-5); Neutrophil # 7.16 X10^3/uL (2.7-7.7); Neutrophil % 74.6 % (47-70); Platelet Count 306 K/mm3 (150-450); RBC Distribution Width CV 12.5 % (11.6-14.6); RBC Distribution Width SD 40.1 fl (35.1-43.9); Red Blood Count 3.78 M/mm3 (4.2-5.4); White Blood Count 9.6 K/mm3 (4.4-11.0)
[2023-01-17] MEDS: 0.9% Normal Saline Single 100 ML IV.SOLN. INTRA-UTER (08:06)
[2023-01-17] MEDS: Oxytocin 15 Units/NS 250ml 15 UNITS/250 ML IV.SOLN 2 UNITS IV (08:19)
[2023-01-17 09:11] LABS: Bedside Glucose 83 mg/dL (74-106)
[2023-01-17 10:00] LABS: Bedside Glucose 76 mg/dL (74-106)
[2023-01-17] MEDS: LACTATED RINGERS 500 ML 999 ML IV (11:05)
[2023-01-17] MEDS: fentaNYL-bupivacaine (epidural) 100 ML BAG EPIDURAL ×2 (12:28→16:38)
[2023-01-17] MEDS: Lactated Ringers 1,000 ML 200 ML IV (13:27)
[2023-01-17 14:36] LABS: Bedside Glucose 95 mg/dL (74-106)
[2023-01-17 14:36] LABS: Bedside Glucose 58 mg/dL (74-106)
[2023-01-17 17:51] LABS: Bedside Glucose 68 mg/dL (74-106)
--- NOTE | 2023-01-17 18:13 | EX.PCM.OBRPT ---
Assessment & Plan (1) Encounter for induction of labor: (2) Gestational diabetes: COMMENT: refer to Dr.King Jarquin, [facility] carpentry specialist checking fasting and 1 2hr pp twice a week reporting to (3) Supervision of high-risk : COMMENT: [id number] APRIL 01/23/23 girl Nena Lopez Thomas (4) History of prior with IUGR : COMMENT: nl growth (5) Obesity affecting : COMMENT: 1 TM GCT. encouraged healthy weight gain (6) : QUALIFIERS: Weeks of gestation: 39 weeks Qualified Code(s): Z3A.39 - 39 weeks gestation of COMMENT: carrier and genetic screening declined. (7) Vaginal delivery: COMMENT: SM IOL GDM girl Verónica Maternal Data Information APRIL Calculator Estimated Delivery Date Method Current WG Current Estimate 01/15/23 Ultrasound #2 40w 2d Other Estimates 01/04/23 LMP (Certain) 41w 6d 01/23/23 Ultrasound #1 39w 1d Vaginal Delivery Operative Information Date of Procedure: 01/17/23 Pre-Operative Diagnosis: IOL Post-Operative Diagnosis: same Surgery / Procedure Performed: Spontaneous Vaginal Delivery Type of Anesthesia: Epidural Special Medications: none Estimated Blood Loss: 300 Fluids Replaced: crystalloid Findings Description of Procedure: Patient began pushing and delivered the head in the VERNELL presentation. The head was delivered atraumatically . The anterior and posterior shoulders delivered without complication followed by the rest of the and the infant was placed on the maternal abdomen. Delayed cord clamping was employed for approximately 60 seconds. Cord was clamped and cut and gentle traction was applied to the cord and the placenta delivered spontaneously immediately following it was noted to be intact with three-vessel cord. The perineum and vagina were inspected and noted to have s first degree laceration repaired in the usual fashion with 3-0 rapide. EBL was 300. Patient and infant tolerated delivery well. Presentation: VERNELL Amniotic Membrane Rupture Type: Artificial Amniotic Fluid Description: Clear Placental Delivery Description: Spontaneous Placenta Disposition: [facility] Cord Vessel Description: 3 Vessels Cord Entanglement: None Delayed Cord Clamping: Yes Post Vaginal Delivery Medications Given After Delivery: IV Pitocin Episiotomy Description: None Laceration: Perineal Extension/lac and 1st degree Complication Complications: None Procedures Urinary/Genital [id number]: [id number] Vaginal Delivery [facility]
--- NOTE | 2023-01-17 18:18 | PCM.DC ---
Discharge Instructions Diet Discharge Diet: No restrictions Activity Discharge Activity: Return to Normal Activity, May Drive, May Shower and May Take a Tub Bath (in 4 weeks) May resume sexual activity in: 6-8 weeks (after seen by OB provider) Weight Bearing Status: Full weight bearing Lifting Restrictions: none Dressing / Incision Call your doctor if you observe: Fever of 101 or Higher, Inability to urinate, Using more than 1 pad per hour (for more than 2 hours in a row or more), Shortness of breath, Dizziness, Chest pain and - (headache not controlled with tylenol, change in vision) Follow Up Care When: in 6 weeks for visit, call the office to make the appointment. If you had elevated blood pressures call the office to be seen within 1 week. Test Results: Test results from this visit will be discussed in further detail at your follow-up appointment, if applicable. Discharge Plan Admission Admit Date/Time: 01/17/23 06:55 Attending Provider: Renee London Primary Care Provider: Sergio Victoria Discharge Orders/Prescriptions Prescriptions: No Action DHA 200 mg capsule 200 mg PO DAILY (DME) blood-glucose meter [True Metrix Air Glucose Meter] [facility] See Rx Instructions .ROUTE .MEDSUPPLY Qty: 1 0RF Rx Instructions: As directed (DME) True Metrix Glucose Test Strip Strip See Rx Instructions .ROUTE .MEDSUPPLY Qty: 100 4RF Rx Instructions: As directed Referrals / Follow Up: Sergio Victoria MD [Primary Care Provider] - Disposition Disposition (needs filled in before D/C Order can be placed): Home, Self Care
[2023-01-17] MEDS: Oxytocin 15 Units/NS 250ml 15 UNITS/250 ML IV.SOLN 83 UNITS IV (18:44)
[2023-01-17 19:50] LABS: Bedside Glucose 77 mg/dL (74-106)
--- NOTE | 2023-01-17 20:33 | NURSING ---
this RN gave report to micheline OSORIO. that RN to assume care of couplet at this time.
[2023-01-17] MEDS: Benzocaine/Lanolin/Aloe Vera 1 SPRAY EACH TOPICAL (20:44)
[2023-01-17] MEDS: 0.9% Saline Lock 10 ML Syringe IV (22:04)
[2023-01-18] VITALS (13 sets, daily range): BP systolic 108–152; BP diastolic 71–86; PULSE 68–82; RESP 16; TEMP 35.8–36.8; O2SAT 97–98
[2023-01-18 06:00] LABS: Bedside Glucose 75 mg/dL (74-106)
--- NOTE | 2023-01-18 13:13 | PN.OBGYN_ITS ---
Subjective Subjective Patient doing well without complaints. Tolerating PO. Ambulating and voiding without difficulty. feeding well. Denies chest pain, shortness of breath, calf pain/swelling, fevers, chills, lightheadedness. Objective Data Objective Data Vital Signs: Vital Signs Temp Pulse Resp BP Pulse Ox O2 Del Method 98.2 F 68 16 121/73 H 97 Room Air 01/18/23 12:44 01/18/23 12:44 01/18/23 12:44 01/18/23 12:44 01/18/23 12:44 01/18/23 12:44 Oxygen Delivery Method Room Air Weight: 308 lb 6.827 oz Body Mass Index (BMI) 49.8 Intake & Output: Intake and Output for Last 24 Hours 01/16/23 01/17/23 01/18/23 23:59 23:59 23:59 Intake Total 2371.67 / 2371.67 Output Total 950 / 950 500 / 500 Balance 1421.67 / 1421.67 -500 / -500 Lab / Micro Data Result Diagrams: 01/17/23 07:35 Labs: Laboratory Results - last 24 hr 01/17/23 13:18: POC Glucose 58 L 01/17/23 13:44: POC Glucose 95 01/17/23 17:25: POC Glucose 68 L 01/17/23 18:38: POC Glucose 77 01/18/23 05:33: POC Glucose 75 ROS Constitutional Constitutional: Reports systems reviewed and no addt'l complaints, except as documented Cardiovascular Cardiovascular: Reports systems reviewed and no addt'l complaints, except as do cumented Respiratory/Chest Respiratory/Chest: Reports systems reviewed and no addt'l complaints, except as documented Gastrointestinal Gastrointestinal: Reports systems reviewed and no addt'l complaints, except as documented Physical Exam Const alert, oriented x3 and no apparent distress HEENT Head and Scalp: atraumatic Resp normal respiratory effort GI soft to palpation and non-tender Bimanual Exam - Vag & Uterus: uterus non-tender Uterus Palpation: uterus fundus firm (below Umbilicus) Assessment & Plan (1) Vaginal delivery: COMMENT: SM IOL GDM girl Verónica (2) Gestational diabetes: COMMENT: refer to Dr.King Jarquin, [facility] electroencephalogram technologist checking fasting and 1 2hr pp twice a week reporting to PLAN: Plan s/p PPD # 1 1. routine post delivery care 2. breast feeding- support given 3. rh positive 4. rubella immune
[2023-01-19] VITALS (8 sets, daily range): BP systolic 136–138; BP diastolic 78–83; PULSE 72–75; RESP 16; TEMP 36.2–36.4; O2SAT 99
--- NOTE | 2023-01-19 08:59 | PCM.DC.SUM ---
Providers Date of Admission: 01/17/23 Primary Care Physician: Dr. Sergio Victoria MD Reason For Visit: VAG Diagnosis Discharge Diagnosis (1) Vaginal delivery: Status: Acute Code(s): O80 - Encounter for full-term uncomplicated delivery (2) Gestational diabetes: Status: Acute Code(s): O24.419 - Gestational diabetes mellitus in , unspecified control Medications at Discharge Home Medications docosahexaenoic acid 200 mg capsule ( DHA) 200 mg PO DAILY 05/31/22 blood sugar diagnostic (True Metrix Glucose Test Strip) #100 ea 07/10/22 blood-glucose meter (True Metrix Air Glucose Meter) #1 ea 07/10/22 naproxen 500 mg tablet 500 mg PO BID PRN pain #20 tabs 01/19/23 Hospital Course Operations None Procedures - (vaginal delivery ) Summary of Care Provided Minutes Spent on Discharge: 15 Hospital Course: The patient was admitted to L&D on 01/17 for induction of labor. She delivered a viable female infant and recovered well without complications. on post day #1 her lochia was mild and she was having some cramping with breast feeding. On day #2 she was ready to be discharged to home. Physical Exam Const alert, oriented x3 and no apparent distress General Appearance: cooperative and comfortable Resp normal respiratory effort Cardio regular rate GI normal to inspection, nondistended, normoactive bowel sounds GI Narrative: uterus is firm below umbilicus Palpation: soft Back/Spine no CVA tenderness and thoraco-lumbar ROM normal Extremity normal to inspection, no clubbing, cyanosis or edema, no calf tenderness and no pedal edema Psych mental status grossly normal, thought process normal, cooperative, affect normal, speech normal, activity/motor behavior normal, denies homicidal ideation and denies suicidal ideation Weight / BMI Weight Weight: 308 lb 6.827 oz Body Mass Index (BMI) 49.8 ABG / Lab / Microbiology Data Result Diagrams: 01/17/23 07:35 D/C Instructions Discharge Diet: No restrictions May resume sexual activity in: 6-8 weeks (after seen by OB provider) Weight Bearing Status: Full weight bearing Call your doctor if you observe: Fever of 101 or Higher, Inability to urinate, Using more than 1 pad per hour (for more than 2 hours in a row or more), Shortness of breath, Dizziness, Chest pain and - (headache not controlled with tylenol, change in vision) When: in 6 weeks for visit, call the office to make the appointment. If you had elevated blood pressures call the office to be seen within 1 week. Meaningful Use Info Meaningful Use Diagnoses (Choose all that apply): None applicable Discharge Plan Admission Admit Date/Time: 01/17/23 06:55 Attending Provider: Renee London Primary Care Provider: Sergio Victoria Discharge Orders/Prescriptions Prescriptions: New naproxen 500 mg tablet 500 mg PO BID PRN (Reason: pain) Qty: 20 0RF No Action DHA 200 mg capsule 200 mg PO DAILY (DME) blood-glucose meter [True Metrix Air Glucose Meter] Misc See Rx Instructions .ROUTE .MEDSUPPLY Qty: 1 0RF Rx Instructions: As directed (DME) True Metrix Glucose Test Strip Strip See Rx Instructions .ROUTE .MEDSUPPLY Qty: 100 4RF Rx Instructions: As directed Referrals / Follow Up: Sergio Victoria MD [Primary Care Provider] - Disposition Disposition (needs filled in before D/C Order can be placed): Home, Self Care
== END 2023-01-19 19:20 | disposition home or self-care (01) | DRG 807 ==
PROVIDERS: Admitting Provider Obstetrics & Gynecology; PCP Family Medicine; Referring Provider Obstetrics & Gynecology; Visit Provider Obstetrics & Gynecology
DX: O24.429 Gestational diabetes mellitus in childbirth, unspecified control (principal); Z37.0 Single live birth; O70.0 First degree perineal laceration during delivery; Z87.59 Personal history of other complications of pregnancy, childbirth and the puerperium; O99.214 Obesity complicating childbirth; Z3A.39 39 weeks gestation of pregnancy
CPT/HCPCS: 59025; 59050; 82962; 85025; 86850; 86900; 86901; 99221; J7120; A4216; G0378

== ENCOUNTER → 2023-02-28 | Outpatient (CLI) | payer OTHER, SELFPAY ==
[2023-02-28 11:51] LABS: T4 Free Direct 1.01 ng/dL (0.76-1.46); Thyroid Stim Hormone (TSH) 2.41 uIU/mL (0.358-3.74)
== END | disposition home or self-care (01) ==
LOC: LAB 10:46
PROVIDERS: PCP Family Medicine; Referring Provider Obstetrics & Gynecology; Visit Provider Obstetrics & Gynecology
DX: E01.0 Iodine-deficiency related diffuse (endemic) goiter (principal)
CPT/HCPCS: 36415; 84439; 84443

== ENCOUNTER → 2023-03-06 | Outpatient (CLI) | payer OTHER, SELFPAY ==
--- NOTE | 2023-03-06 13:03 | US_ITS ---
STUDY: THYROID ULTRASOUND REASON FOR EXAM: Female, 32 years old. Thyromegaly TECHNIQUE: Ultrasound evaluation of the thyroid was performed with real-time and static muñoz-scale imaging. COMPARISON: None. FINDINGS: RIGHT LOBE: The right lobe of the thyroid gland is enlarged and measures 5.7 cm x 2.4 cm x 1.9 cm. There is a heterogeneous echotexture. There is a 5 mm x 4 mm x 4 mm complex solid and cystic nodule in the midportion of the right lobe. LEFT LOBE: The left lobe of the thyroid gland is enlarged and measures 5.3 cm x 2.2 cm x 1.6 cm. There is a heterogeneous echotexture. There are no demonstrated solid, cystic or complex lesions. ISTHMUS: The isthmus measures 4 mm. The regional lymph nodes are normal. US/Thyroid IMPRESSION: Thyromegaly. Heterogeneous appearance of the thyroid gland. 5 mm x 4 mm x 4 mm solid/cystic nodule in the midpole of the right lobe. Electronically Signed: Francisco Simpson MD at 9:54 EDT ,
== END | disposition home or self-care (01) ==
LOC: US 13:02
PROVIDERS: PCP Family Medicine; Referring Provider Obstetrics & Gynecology; Visit Provider Obstetrics & Gynecology
DX: E01.0 Iodine-deficiency related diffuse (endemic) goiter (principal)
CPT/HCPCS: 76536

== ENCOUNTER → 2024-01-30 | Outpatient (CLI) | payer BC, SELFPAY ==
[2024-02-04 05:07] LABS: Chlamydia By Nucleic Acid AMP Negative (Negative); Gonococcus By Nucleic Acid AMP Negative (Negative)
== END | disposition home or self-care (01) ==
LOC: LABSPEC 15:49
PROVIDERS: PCP Family Medicine; Referring Provider Advanced Practice Midwife; Visit Provider Advanced Practice Midwife
DX: Z34.90 Encounter for supervision of normal pregnancy, unspecified, unspecified trimester (principal)
CPT/HCPCS: 87086; 87491; 87591

== ENCOUNTER → 2024-02-03 | Outpatient (CLI) | payer BC, SELFPAY ==
[2024-02-03 10:13] LABS: Absolute Lymphocyte Count 1.62 X10^3/uL (0.83-4.51); Absolute Neutrophil Count 7.3 X10^3/uL (2.0-7.7); Basophil# 0.05 X10^3/uL; Basophil% 0.5 % (0-1); Eosinophil# 0.06 X10^3/uL; Eosinophils% 0.6 % (0-5); Hematocrit 38.8 % (37-47); Hemoglobin 12.5 g/dL (12.0-15.0); Lymphocyte # 1.62 X10^3/ul (0.83-4.51); Mean Corp Hgb Conc 32.2 g/dL (32-36); Mean Corpuscular Hgb 27.5 pg (27.0-32.0); Mean Corpuscular Volume 85.5 fL (81-99); Mean Platelet Vol. 10.2 fl (6.2-12.0); Monocyte# 0.48 X10^3/uL; NRBC Flagged by Analyzer 0 % (0-5); Neutrophil # 7.25 X10^3/uL (2.7-7.7); Neutrophil % 76.2 % (47-70); Platelet Count 319 K/mm3 (150-450); RBC Distribution Width CV 13.3 % (11.6-14.6); RBC Distribution Width SD 41.4 fl (35.1-43.9); Red Blood Count 4.54 M/mm3 (4.2-5.4); White Blood Count 9.5 K/mm3 (4.4-11.0)
[2024-02-03 10:35] LABS: Hemoglobin A1c 5.4 % (3.8-5.6)
[2024-02-03 11:08] LABS: HIV - WCH Non-Reactive (Nonreactive); Hepatitis B Surface Antigen Non-Reactive (Nonreactive); Hepatitis C Antibody Non-Reactive (Nonreactive); Rubella IgG Reactive (Nonreactive); Syphilis Antibodies Non-reactive
== END | disposition home or self-care (01) ==
LOC: LAB 09:18
PROVIDERS: PCP Family Medicine; Referring Provider Advanced Practice Midwife; Visit Provider Advanced Practice Midwife
DX: Z34.90 Encounter for supervision of normal pregnancy, unspecified, unspecified trimester (principal)
CPT/HCPCS: 36415; 83036; 85025; 86703; 86762; 86780; 86803; 86850; 86900; 86901; 87340

== ENCOUNTER → 2024-04-23 | Outpatient (CLI) | payer BC, SELFPAY ==
--- NOTE | 2024-04-23 08:10 | US_ITS ---
STUDY: SECOND AND THIRD TRIMESTER OBSTETRICAL ULTRASOUND REASON FOR EXAM: Female, 34 years old routine survey LMP: 12/04/2023 TECHNIQUE: Transabdominal and Transvaginal TECHNICAL QUALITY: Adequate. PRIOR ULTRASOUND: None. FINDINGS: There is a single intrauterine fetus. The fetus is in a breech and transverse head left presentation. There is demonstrated cardiac activity with a heart rate of 148 bpm. There is a subjectively normal amniotic fluid volume. The largest amniotic fluid pocket measures 3.3 x 5.6 cm. The placenta is posterior and fundal, not low lying There are Grade 1 placental changes. The cervix measures 4.37 cm in length. The adnexal regions are not visualized. BIOMETRY: BPD: 4.88 cm: 20 weeks, 5 days HC: 18.62 cm: 21 weeks, 0 days AC: 16.11 cm: 21 weeks, 1 days FL: 3.54 cm: 21 weeks, 1 days age by current US: 21 weeks, 3 days. APRIL by current US: 09/03/2024. Estimated weight: 494 grams, +/- 61 grams, %. Age by LMP: 20 weeks, 1 days. APRIL by LMP: 09/09/2024. ANATOMY: Cranium: Normal lateral ventricles. Normal choroid plexus. Normal cerebellum. Normal cisterna magna. Normal face, nose and lips. Lateral ventricles measure 0.85 cm, cerebellum 2.16 cm, cisterna magna 0.52 cm Chest: Normal 4-chamber heart. Abdomen/Pelvis: Normal diaphragm. Normal stomach. Normal abdominal wall. Normal cord insertion. Normal 3 vessel cord. Normal kidneys. Normal bladder. Spine: Normal cervical spine. Normal thoracic spine. Normal lumbar spine. Normal sacrum. Extremities: Normal bilateral upper extremities. Normal bilateral lower extremities. IMPRESSION: Single live intrauterine at 21 weeks, 3 days by current ultrasound APRIL of 09/03/2024. Heart rate of 148 bpm. No suspicious sonographic findings, presentation on this study is breech Electronically Signed: Richard Sparks MD at 12:54 EDT , STUDY: SECOND AND THIRD TRIMESTER OBSTETRICAL ULTRASOUND REASON FOR EXAM: Female, 34 years old routine survey LMP: 12/04/2023 TECHNIQUE: Transvaginal TECHNICAL QUALITY: Adequate. PRIOR ULTRASOUND: None. FINDINGS: There is a single intrauterine fetus. The fetus is in a breech and transverse head left presentation. There is demonstrated cardiac activity with a heart rate of 148 bpm. There is a subjectively normal amniotic fluid volume. The largest amniotic fluid pocket measures 3.3 x 5.6 cm. The placenta is posterior and fundal, not low lying There are Grade 1 placental changes. The cervix measures 4.37 cm in length. The adnexal regions are not visualized. BIOMETRY: BPD: 4.88 cm: 20 weeks, 5 days HC: 18.62 cm: 21 weeks, 0 days AC: 16.11 cm: 21 weeks, 1 days FL: 3.54 cm: 21 weeks, 1 days age by current US: 21 weeks, 3 days. APRIL by current US: 09/03/2024. Estimated weight: 494 grams, +/- 61 grams, %. Age by LMP: 20 weeks, 1 days. APRIL by LMP: 09/09/2024. ANATOMY: Cranium: Normal lateral ventricles. Normal choroid plexus. Normal cerebellum. Normal cisterna magna. Normal face, nose and lips. Lateral ventricles measure 0.85 cm, cerebellum 2.16 cm, cisterna magna 0.52 cm Chest: Normal 4-chamber heart. Abdomen/Pelvis: Normal diaphragm. Normal stomach. Normal abdominal wall. Normal cord insertion. Normal 3 vessel cord. Normal kidneys. Normal bladder. Spine: Normal cervical spine. Normal thoracic spine. Normal lumbar spine. Normal sacrum. Extremities: Normal bilateral upper extremities. Normal bilateral lower extremities. US/OB Anatomy Scan
== END | disposition home or self-care (01) ==
PROVIDERS: PCP Family Medicine; Referring Provider Advanced Practice Midwife; Visit Provider Advanced Practice Midwife
DX: Z34.92 Encounter for supervision of normal pregnancy, unspecified, second trimester (principal)
CPT/HCPCS: 76805; 76817

== ENCOUNTER → 2024-06-12 | Outpatient (CLI) | payer BC, SELFPAY ==
[2024-06-12 10:23] LABS: Absolute Lymphocyte Count 1.39 X10^3/uL (0.83-4.51); Absolute Neutrophil Count 7.6 X10^3/uL (2.0-7.7); Basophil# 0.03 X10^3/uL; Basophil% 0.3 % (0-1); Eosinophil# 0.06 X10^3/uL; Eosinophils% 0.6 % (0-5); Hematocrit 32.4 % (37-47); Hemoglobin 10.8 g/dL (12.0-15.0); Lymphocyte # 1.39 X10^3/ul (0.83-4.51); Lymphocyte % 14.6 % (19-41); Mean Corp Hgb Conc 33.3 g/dL (32-36); Mean Corpuscular Hgb 28.6 pg (27.0-32.0); Mean Corpuscular Volume 85.9 fL (81-99); Mean Platelet Vol. 10.3 fl (6.2-12.0); Monocyte# 0.39 X10^3/uL; Monocyte% 4.1 % (0-10); NRBC Flagged by Analyzer 0 % (0-5); Neutrophil # 7.58 X10^3/uL (2.7-7.7); Neutrophil % 79.5 % (47-70); Platelet Count 270 K/mm3 (150-450); RBC Distribution Width CV 13.2 % (11.6-14.6); RBC Distribution Width SD 41.7 fl (35.1-43.9); Red Blood Count 3.77 M/mm3 (4.2-5.4); White Blood Count 9.5 K/mm3 (4.4-11.0)
[2024-06-12 11:03] LABS: Glucose Challenge Gest 1H 50g 161 mg/dL (70-140)
[2024-06-12 11:36] LABS: HIV - WCH Non-Reactive (Nonreactive); Syphilis Antibodies Non-reactive
== END | disposition home or self-care (01) ==
PROVIDERS: PCP Family Medicine; Referring Provider Advanced Practice Midwife; Visit Provider Advanced Practice Midwife
DX: O09.92 Supervision of high risk pregnancy, unspecified, second trimester (principal); Z3A.24 24 weeks gestation of pregnancy; Z13.1 Encounter for screening for diabetes mellitus
CPT/HCPCS: 36415; 82950; 85025; 86703; 86780

== ENCOUNTER → 2024-07-14 | Outpatient (CLI) | payer BC, SELFPAY ==
--- NOTE | 2024-07-14 13:06 | US_ITS ---
STUDY: SECOND AND THIRD TRIMESTER OBSTETRICAL ULTRASOUND REASON FOR EXAM: Female, 34 years old growth LMP: December 04, 2023. TECHNIQUE: Transabdominal TECHNICAL QUALITY: Adequate. PRIOR ULTRASOUND: Comparison is made with prior study dated April 23, 2024. FINDINGS: There is a single intrauterine fetus. The fetus is in a cephalic presentation. There is demonstrated cardiac activity with a heart rate of 132 bpm. There is a normal amniotic fluid volume. The largest amniotic fluid pocket measures 4.9 cm. The amniotic fluid index (SUMANTH) is 9.0 cm. The placenta is fundal in location. There are Grade 1 placental changes. The adnexal regions are not visualized. BIOMETRY: BPD: 8.27 cm: 33 weeks, 2 days HC: 29.87 cm: 33 weeks, 1 days AC: 28.51 cm: 32 weeks, 4 days FL: 6.44 cm: 33 weeks, 2 days CI: 80% FL/BPD: 78% FL/HC: FL/AC: 23% HC/AC: 1.05 age by current US: 32 weeks, 5 days. APRIL by current US: September 03, 2024. Estimated weight: 2090 grams, +/- 313 grams, 74 %. age by prior US: 32 weeks, 5 days. APRIL by prior US: September 03, 2024. Age by LMP: 31 weeks, 6 days. APRIL by LMP: September 09, 2024. US/OB Limited With Biometrics IMPRESSION: Single live intrauterine gestation with a mean gestational age of 32 weeks and 5 days. Electronically Signed: Francisco Simpson MD at 8:42 EDT ,
== END | disposition home or self-care (01) ==
LOC: US 13:04
PROVIDERS: PCP Family Medicine; Referring Provider Advanced Practice Midwife; Visit Provider Advanced Practice Midwife
DX: O99.810 Abnormal glucose complicating pregnancy (principal); Z3A.00 Weeks of gestation of pregnancy not specified
CPT/HCPCS: 76816

== ENCOUNTER → 2024-08-11 | Outpatient (CLI) | payer BC, SELFPAY ==
--- NOTE | 2024-08-11 12:33 | US_ITS ---
STUDY: SECOND AND THIRD TRIMESTER OBSTETRICAL ULTRASOUND - LIMITED REASON FOR EXAM: Female, 34 years old 36 week growth , evaluate well-being. LMP: 12/04/2023 PRIOR ULTRASOUND: Prior study dated: 07/14/2024 TECHNIQUE: Transabdominal TECHNICAL QUALITY: Adequate. FINDINGS: There is a single intrauterine fetus. The fetus is in a cephalic presentation. There is demonstrated cardiac activity with a heart rate of 143 bpm. There is a normal amniotic fluid volume. The largest amniotic fluid pocket measures 5.8 cm. The amniotic fluid index (SUMANTH) is 11.5 cm. The placenta is fundal in location. There are Grade 2 placental changes. The cervix is not visualized. BIOMETRY: BPD: 8.8 cm: 35 weeks, 4 days HC: 32.9 cm: 37 weeks, 3 days AC: 33.4 cm: 37 weeks, 2 days FL: 7.2 cm: 37 weeks, 0 days Age by LMP: 35 weeks, 6 days. APRIL by LMP: 09/09/2024. age by current US: 36 weeks, 6 days. APRIL by current US: 09/02/2024. Estimated weight: 3098 grams, +/- 465 grams, 80 percentile. US/OB Limited With Biometrics IMPRESSION: Single live intrauterine fetus in cephalic presentation with an estimated gestational age of 36 weeks and 6 days. The APRIL is 09/02/2024. Electronically Signed: Cisco Munoz MD at 14:44 EDT ,
== END | disposition home or self-care (01) ==
LOC: US 12:32
PROVIDERS: PCP Family Medicine; Referring Provider Advanced Practice Midwife; Visit Provider Advanced Practice Midwife
DX: O99.810 Abnormal glucose complicating pregnancy (principal); Z3A.36 36 weeks gestation of pregnancy
CPT/HCPCS: 76816

== ENCOUNTER → 2024-08-13 | Outpatient (CLI) | payer BC, SELFPAY | END | disposition home or self-care (01) | LOC: LABSPEC 17:02 | PROVIDERS: PCP Family Medicine; Referring Provider Obstetrics & Gynecology; Visit Provider Obstetrics & Gynecology | DX: O09.93 Supervision of high risk pregnancy, unspecified, third trimester (principal); Z3A.00 Weeks of gestation of pregnancy not specified | CPT/HCPCS: 87081 ==

== ENCOUNTER 2024-09-02 07:12 | Inpatient (IN) | payer BC, SELFPAY ==
[2024-09-02] VITALS (26 sets, daily range): BP systolic 116–152; BP diastolic 55–87; PULSE 68–116; RESP 16; TEMP 36.4–36.8; O2SAT 97–100; BMI 48.4
--- NOTE | 2024-09-02 07:23 | HP.PCM.OB_ITS ---
HPI - General General Date of Admission: 09/02/24 HPI Narrative KATHI GRIMALDO, is a 34 F who presents for IOL secondary to GDM 39 weeks. she was 1 cm in the office. she denies any bleeding, lof admits good FM no regular ctx Maternal Data Information APRIL Calculator Estimated Delivery Date Method Current WG Current Estimate 09/09/24 Ultrasound #1 39w 0d Other Estimates 08/24/24 LMP (Certain) 41w 2d PFSH PFSH Medical History Vaginal delivery Gestational diabetes Home Medications ?Medication ?Instructions ?Recorded ?Last Taken ?Type multivitamin no.47-iron fum 27 cap PO preg 01/28/24 09/01/24 History mg-folate no.1 1 mg-dha 300 mg capsule (PNV-DHA) Allergy/AdvReac Type Severity Reaction Status Date / Time No Known Allergies Allergy Verified 09/02/24 07:54 Family History Grandmother Cancer, Onset Age: 70 Maternal - lymphoma melanoma 80yo- Surgical History [place] teeth extracted S/P laparoscopic procedure Social History adopted: No household members: spouse and children number of children: 3 current occupational status: unemployed current occupation: [employer] current occupational exposures/hazards: No pets and animals: No history of recent travel: Yes ([place]) out of state: Yes out of country: No sexually active: Yes Smoking Status: Never smoker alcohol intake: never substance use type: does not use well-balanced diet: daily or most days caffeine: Yes Type: carbonated beverages Number of servings: 1 eating out: 1-3 times/week during the past year weight has: remained stable what type of physical activity do you participate in: none patricia/gnosticism: Rastafarian seatbelt use: always do you feel safe at home: Yes additional social history: - 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 Date Name GA/Weeks Outcome Route Bth Weight Gen Labor Lgth Anesthesia Del Locatn Provider FOB 04/14/17 Nena 41 live - full term 7lbs 3oz Female 7hou rs epidural [facility] Dr. Idalmis Guzman 05/09/19 Beverly 40 live - full term 6lbs 3oz Female 4hou rs epidural [facility] Dr. Idalmis Guzman 01/17/23 Verónica 40 live - full term 9#2oz Female epidu ral [facility] Marcanthony Delivery Date: 04/14/17 Last Updated by: Hollie Decker No issues during or delivery but was on the smaller side. Delivery Date: 05/09/19 Last Updated by: Hollie Decker No issues during or delivery but was on the small side. Delivery Date: 01/17/23 Last Updated by: Therese FERRER IOL GDM Visit Details Expected Delivery Route/Plan Labor Preferences- CB/BF classes: no labor support person: Thomas labor intervention preferences: [] pain management options preferred: cut cord/dad catch: [] : [] PP control planned: [] discussed possible routes of delivery and associated risks: [] special requests: [] Plans Covid status: [] Flu vaccine: [] Tdap vaccine: declines Rhogam: na LARC form signed: yes Problem list reviewed and updated with the most current plan of care details and appropriate orders placed. Relevant counseling for the gestational age provided. Continue routine care and follow up unless otherwise noted in visit notes/problem list details OB Flowsheet Initial Weight: Not Recorded Date -?-?-?-?-?-?-?-?-?-?-?-?- EGA Weight BP Urine Prot -?-?-?-?-?-?-?-?-?-?-?-?- Glucose FHR FuHt Pres Dilation -?-?-?-?-?-?-?-?-?-?-?-?- Effaced St Visit Note 01/30/24 -?-?-?-?-?-?-?-?-?-?-?-?- 8w 1d 300 lb 8 oz 131/86 -?-?-?-?-?-?-?-?-?-?-?-?- 185 -?-?-?-?-?-?-?-?-?-?-?-?- KW-CRL not cons with dates. APRIL changed. Declines NIPT 02/27/24 -?-?-?-?-?-?-?-?-?-?-?-?- 12w 1d 300 lb 126/84 Negative -?-?-?-?-?-?-?-?-?-?-?-?- Negative 160 -?-?-?-?-?-?-?-?-?-?-?-?- MH-No VB. Active IUP and conf FHT w/US. Reviewed labs 03/25/24 -?-?-?-?-?-?-?-?-?-?-?-?- 16w 0d 299 lb 4 oz 121/80 Nega tive -?-?-?-?-?-?-?-?-?-?-?-?- Negative 149 -?-?-?-?-?-?-?-?-?-?-?-?- JV- no complaint s today. working at home with and enjoying kids. (was an L&D nurse) declines NIPT. has anatomy scan scheduled for 04/01/24 04/23/24 -?-?-?-?-?-?-?-?-?-?-?-?- 20w 1d 301 lb 110/75 Negative -?-?-?-?-?-?-?-?-?-?-?-?- Negative 140 -?-?-?-?-?-?-?-?-?-?-?-?- SM- no vb lof go od fm n oregular ctx 05/20/24 -?-?-?-?-?-?-?-?-?-?-?-?- 24w 0d 302 lb 119/77 Negative -?-?-?-?-?-?-?-?-?-?-?-?- Negative 143 -?-?-?-?-?-?-?-?-?-?-?-?- KW- No vb/lof/ct x. good fm. 28 week labs discussed. 06/17/24 -?-?-?-?-?-?-?-?--?-?-?-?- 28w 0d 306 lb 123/77 Negative -?-?-?-?-?-?-?-?-?-?-?-?- Negative 140 -?-?-?-?-?-?-?-?-?-?-?-?- KW-no vb/lof/ctx . good fm. LARC today. declines tdap. would like to start testing blood sugars instead of doing 3 hour due to hx of GDM 07/03/24 -?-?-?-?-?-?-?-?-?-?-?-?- 30w 2d 304 lb 125/83 Negative -?-?-?-?-?-?-?-?-?-?-?-?- Negative 140 -?-?-?-?-?-?-?-?-?-?-?-?- kw-no vb/ctx. go od fm. Overall BS normal range. some elevated fastings encouraged protein in the evenings. 32 and 36 week US ordered. 07/14/24 -?-?-?-?-?-?-?-?-?-?-?-?- 31w 6d 303 lb 128/84 Negative -?-?-?-?-?-?-?-?-?-?-?-?- Negative 138 -?-?-?-?-?-?-?-?-?-?-?-?- -no VB, LOF. G ood FM -no VB, LOF. Good FM. Gluc ose reading all nl. Will check bid. 07/29/24 -?-?-?-?-?-?-?-?-?-?-?-?- 34w 0d 300 lb 6 oz 118/79 Nega tive -?-?-?-?-?-?-?-?-?-?-?-?- Negative 135 Breech -?-?-?-?-?-?-?-?-?-?-?-?- JV- breech today . plan scan at next visit. glucose log reviewed and normal. good movement. 08/13/24 -?-?-?-?-?-?-?-?-?-?-?-?- 36w 1d 300 lb 4 oz 127/82 Nega tive -?-?-?-?-?-?-?-?-?-?-?-?- Negative 140 Cephalic -?-?-?-?-?-?-?-?-?-?-?-?- JV- nst reactive JV- nst reactive, normal corey wth scan. planning 39 week IOL. JV- nst reactive, normal corey wth scan. planning 39 week IOL. GBS collected 08/20/24 -?-?-?-?-?-?-?-?-?-?-?-?- 37w 1d 301 lb 2 oz 120/79 Nega tive -?-?-?-?-?-?-?-?-?-?-?-?- Negative 135 -?-?-?-?-?-?-?-?-?-?-?-?- KW- NST reactive . no vb/lof/ctx. good fm. 39 week IOL set up. KW- Work in for JV. NST reac tive. no vb/lof/ctx. good fm. 39 week IOL set up. 08/26/24 -?-?-?-?-?-?-?-?-?-?-?-?- 38w 0d 299 lb 133/85 Negative -?-?-?-?-?-?-?-?-?-?-?-?- Negative 140 Cephalic -?-?-?-?-?-?-?-?-?-?-?-?- SM- no vb lof go od fm no regular ctx NST FHR Rate Baby A Baseline: 130 Variability:: Moderate Accelerations:: 15 x 15 Decelerations:: None NST Reactive:: Yes FHR Category:: Category I Uterine Activity:: irregular ROS Constitutional Constitutional: Reports systems reviewed and no addt'l complaints, except as documented Eyes Eyes: Denies change in vision ENT HEENT: Reports systems reviewed and no addt'l complaints, except as documented; Denies headache(s) Cardiovascular Cardiovascular: Reports systems reviewed and no addt'l complaints, except as documented; Denies chest pain or dyspnea Respiratory/Chest Respiratory/Chest: Reports systems reviewed and no addt'l complaints, except as documented Gastrointestinal Gastrointestinal: Reports systems reviewed and no addt'l complaints, except as documented; Denies abdominal pain Genitourinary Genitourinary: Reports systems reviewed and no addt'l complaints, except as documented, contractions Details: present (irregular) and movement Det ails: present; Denies dysuria or genital lesions Musculoskeletal Musculoskeletal: Reports systems reviewed and no addt'l complaints, except as documented Neurologic Neurologic: Reports systems reviewed and no addt'l complaints, except as documented Endocrine Endocrinology: Reports systems reviewed and no addt'l complaints, except as documented Physical Exam Const alert, oriented x3, no apparent distress and healthy appearing HEENT normocephalic and moist oral mucous membranes Head and Scalp: atraumatic Neck full ROM, no lymphadenopathy, supple and thyroid normal General: trachea midline Lymph Lymphatic: no lymphadenopathy noted Chest inspection of chest normal Resp normal respiratory effort Cardio regular rate GI normal to inspection, nondistended, normoactive bowel sounds, soft to palpation and non-tender Inspection: gravid external exam normal Manual OB Exam: estimated gestational size appropriate, presentation cephalic, dilated, effaced and station Extremity normal to inspection General Extremity: Negative for edema Skin no rashes or lesions noted Neuro no focal motor deficits and deep tendon reflexes 2+ bilaterally Motor Exam: strength 5/5 throughout and clonus absent Psych mental status grossly normal Labs Labs Labs: Blood Type O POSITIVE Antibody Screen NEGATIVE Hct 31.8 % (37-47) L Hgb 10.3 g/dL (12.0-15.0) L Pap Smear Negative Obstetrics Ultrasound Syphilis Total Ab Non-reactive Rubella IgG Antibody Reactive (Nonreactive) Hep Bs Antigen Non-Reactive (Nonreactive) Hepatitis C Antibody Non-Reactive (Nonreactive) Hepatitis C Ab (EIA) 0.1 s/co ratio (0.0-0.9) Chlamydia DNA (EUGENIE) Negative (Negative) N.gonorrhoeae DNA (EUGENIE) Negative (Negative) HIV 1&2 Antibody Non-Reactive (Nonreactive) Glucose 1 Hr 50 gm 161 mg/dL (70-140) H Gest Glucose Tolerance MG/DL Group B Strep DNA Negative (Negative) Rhogam given: No Assessment & Plan (1) : QUALIFIERS: Weeks of gestation: 38 weeks Qualified Code(s): Z3A.38 - 38 weeks gestation of COMMENT: GBS neg, discussed genetic & carrier testing/declines. Nl US (2) Supervision of high-risk : QUALIFIERS: Trimester: third trimester Qualified Code(s): O09.93 - Supervision of high risk , unspecified, third trimester COMMENT: PRR, , APRIL 08/24/24, PC Beverly Barrett Emily, Thomas (3) Hx of gestational diabetes in prior , currently : (4) Advanced maternal age (AMA) in : (5) Varicose veins of both lower extremities: QUALIFIERS: Varicose vein complication: unspecified Qualified Code(s): I83.93 - Asymptomatic varicose veins of bilateral lower extremities (6) Obesity: QUALIFIERS: Obesity classification: unspecified obesity classification Obesity type: unspecified obesity type Serious obesity comorbi dity presence: without serious comorbidity Qualified Code(s): E66.9 - Obesity, unspecified COMMENT: A1C normal BMI 48- weekly NSTs at 36 weeks/ok per SM due to cost (7) Abnormal glucose affecting : COMMENT: wants to start testing instead of doing 3 hour. needs growth at 32 and 36. NSTs at 36 weeks:ok per SM due to cost Starting testing just bid. IOL at 39 weeks (8) Anemia affecting : QUALIFIERS: Trimester: third trimester Qualified Code(s): O99.013 - Anemia complicating , third trimester COMMENT: start PO iron. CBC in 4 weeks (9) Encounter for induction of labor: PLAN: Plan Patient presents IOL, plan management for with pitocin/AROM. fb Pain management: plans epidural. GBS negative. Management of any complications: check BS per protocol I have [facility] and made any clinically relevant updates.
[2024-09-02] MEDS: Lactated Ringers 1,000 ML 50 ML IV (07:40)
[2024-09-02 08:01] LABS: Absolute Lymphocyte Count 1.63 X10^3/uL (0.83-4.51); Absolute Neutrophil Count 7.3 X10^3/uL (2.0-7.7); Basophil# 0.05 X10^3/uL; Basophil% 0.5 % (0-1); Eosinophil# 0.06 X10^3/uL; Eosinophils% 0.6 % (0-5); Hematocrit 31.8 % (37-47); Hemoglobin 10.3 g/dL (12.0-15.0); Lymphocyte # 1.63 X10^3/ul (0.83-4.51); Lymphocyte % 16.9 % (19-41); Mean Corp Hgb Conc 32.4 g/dL (32-36); Mean Corpuscular Hgb 28.5 pg (27.0-32.0); Mean Corpuscular Volume 87.8 fL (81-99); Mean Platelet Vol. 10.7 fl (6.2-12.0); Monocyte# 0.57 X10^3/uL; Monocyte% 5.9 % (0-10); NRBC Flagged by Analyzer 0 % (0-5); Neutrophil # 7.26 X10^3/uL (2.7-7.7); Neutrophil % 75.4 % (47-70); Platelet Count 293 K/mm3 (150-450); RBC Distribution Width CV 12.7 % (11.6-14.6); RBC Distribution Width SD 40.7 fl (35.1-43.9); Red Blood Count 3.62 M/mm3 (4.2-5.4); White Blood Count 9.6 K/mm3 (4.4-11.0)
[2024-09-02] MEDS: 0.9% Normal Saline Single 100 ML IV.SOLN. INTRA-UTER (08:15)
[2024-09-02] MEDS: Oxytocin 15 Units/NS 250ml 15 UNITS/250 ML IV.SOLN 2 UNITS IV (08:30)
[2024-09-02 10:04] LABS: Bedside Glucose 80 mg/dL (74-106)
[2024-09-02] MEDS: Lactated Ringers 1,000 ML 999 ML IV (11:30)
[2024-09-02] MEDS: fentaNYL-bupivacaine (epidural) 100 ML BAG EPIDURAL (12:23)
[2024-09-02] MEDS: Oxytocin 15 Units/NS 250ml 15 UNITS/250 ML IV.SOLN 334 UNITS IV (12:48)
[2024-09-02] MEDS: Oxytocin 15 Units/NS 250ml 15 UNITS/250 ML IV.SOLN 83 UNITS IV (13:35)
[2024-09-02 15:06] LABS: Syphilis Antibodies Non-reactive
[2024-09-02 16:54] LABS: Bedside Glucose 91 mg/dL (74-106)
--- NOTE | 2024-09-02 17:57 | EX.PCM.OBRPT ---
Assessment & Plan (1) : QUALIFIERS: Weeks of gestation: 38 weeks Qualified Code(s): Z3A.38 - 38 weeks gestation of COMMENT: GBS neg, discussed genetic & carrier testing/declines. Nl US (2) Supervision of high-risk : QUALIFIERS: Trimester: third trimester Qualified Code(s): O09.93 - Supervision of high risk , unspecified, third trimester COMMENT: PRR, , APRIL 08/24/24, PC Beverly Barrett Emily, Thomas (3) Advanced maternal age (AMA) in : (4) Anemia affecting : QUALIFIERS: Trimester: third trimester Qualified Code(s): O99.013 - Anemia complicating , third trimester COMMENT: start PO iron. CBC in 4 weeks (5) Abnormal glucose affecting : COMMENT: wants to start testing instead of doing 3 hour. needs growth at 32 and 36. NSTs at 36 weeks:ok per SM due to cost Starting testing just bid. IOL at 39 weeks (6) Obesity: QUALIFIERS: Obesity type: unspecified obesity type Obesity classification: unspecified obesity classification Serious obesity comorbidity presence: without serious comorbidity Qualified Code(s): E66.9 - Obesity, unspecified COMMENT: A1C normal BMI 48- weekly NSTs at 36 weeks/ok per SM due to cost (7) Vaginal delivery: COMMENT: SM girl 39 IOL GDM Maternal Data Information APRIL Calculator Estimated Delivery Date Method Current WG Current Estimate 09/09/24 Ultrasound #1 39w 0d Other Estimates 08/24/24 LMP (Certain) 41w 2d Vaginal Delivery Operative Information Pre-Operative Diagnosis: see a/p diagnoses Post-Operative Diagnosis: same Surgery / Procedure Performed: Spontaneous Vaginal Delivery Type of Anesthesia: Epidural Special Medications: none Estimated Blood Loss: 200 Fluids Replaced: crystalloid Findings Description of Procedure: Patient began pushing and delivered the head in the VERNELL presentation en caul. The head was delivered atraumatically and a loose nuchal cord ?1 was identified and the infant delivered through without complication. The anterior and posterior shoulders delivered without complication followed by the rest of the with the bag rupturing and the infant was placed on the maternal abdomen. Cord was clamped and cut and gentle traction was applied to the cord and the placenta delivered spontaneously immediately following it was noted to be intact with three-vessel cord. The perineum and vagina were inspected and noted to have a first degree perineal laceration injected with lidocaine which was repaired in the usual fashion with 3-0 vicryl rapide. . EBL was 300. Patient and infant tolerated delivery well. Amniotic Fluid Description: Clear Placental Delivery Description: Spontaneous Placenta Disposition: [facility] Cord Vessel Description: 3 Vessels Cord Entanglement: Around neck x 1, loose Delayed Cord Clamping: Yes Post Vaginal Delivery Medications Given After Delivery: IV Pitocin Episiotomy Description: None Complication Complications: None Procedures Urinary/Genital [id number]: [id number] Vaginal Delivery [facility]
--- NOTE | 2024-09-02 18:00 | DCINST_ITS ---
Discharge Instructions Diet Discharge Diet: No restrictions Activity Discharge Activity: Return to Normal Activity, May Not Drive (while taking narcotic pain medications.) and May Shower May resume sexual activity in: 4-6 weeks Dressing / Incision Call your doctor if your incision/area has: Continuous Slow Oozing, Sudden Increased Bleeding, Increased Pain/ Swelling, Increased Redness and Foul Smelling Discharge Follow Up Care Please Follow Up With: Renee London MD When: Call [phone] to make an appointment with your doctor in 6 weeks. If you had elevated blood pressure or 4th degree laceration, you will need to be seen in 2 weeks. Test Results: Test results from this visit will be discussed in further detail at your follow- up appointment, if applicable. Discharge Plan Admission Admit Date/Time: 09/02/24 07:12 Attending Provider: Renee London Primary Care Provider: Sergio Victoria Discharge Orders/Prescriptions Prescriptions: No Action PNV-DHA 27 mg iron-1 mg -300 mg capsule PO Referrals / Follow Up: Sergio Victoria MD [Primary Care Provider] - Disposition Disposition (needs filled in before D/C Order can be placed): Home, Self Care
[2024-09-03] VITALS (7 sets, daily range): BP systolic 135–139; BP diastolic 74–91; PULSE 70–207; RESP 14–16; TEMP 36.4; O2SAT 82–98
[2024-09-03 05:50] LABS: Bedside Glucose 82 mg/dL (74-106)
--- NOTE | 2024-09-03 09:37 | PCM.PN.OB ---
Subjective Subjective Patient doing well without complaints. Tolerating PO. Ambulating and voiding without difficulty. Feeding well. Denies chest pain, shortness of breath, calf pain/swelling, fevers, chills, lightheadedness. Objective Data Objective Data Vital Signs: Vital Signs Temp Pulse Resp BP Pulse Ox O2 Del Method 97.5 F L 71 14 135/81 H 98 Room Air 09/03/24 08:00 09/03/24 08:00 09/03/24 08:00 09/03/24 08:00 09/03/24 08:00 09/03/24 08:00 Oxygen Delivery Method Room Air Weight: 300 lb Body Mass Index (BMI) 48.4 Intake & Output: Intake and Output for Last 24 Hours 09/01/24 09/02/24 09/03/24 23:59 23:59 23:59 Intake Total 1866.94 / 1866.94 Output Total 950 / 950 Balance 916.94 / 916.94 Lab / Micro Data 09/02/24 07:40 Labs: Laboratory Results - last 24 hr 09/02/24 07:40: Syphilis Total Ab Non-reactive 09/02/24 09:40: POC Glucose 80 09/02/24 16:15: POC Glucose 91 09/03/24 05:29: POC Glucose 82 ROS Constitutional Constitutional: Denies chills, fatigue, fever(s), poor appetite or weakness Eyes Eyes: Denies blurry vision, change in vision, seeing flashes or spots in vision ENT HEENT: Denies dizziness, headache(s), loss taste/smell or sore throat Cardiovascular Cardiovascular: Denies chest pain, dizziness, dyspnea, irregular heart rhythm, palpitations or rapid heart rate Respiratory/Chest Respiratory/Chest: Denies chest tightness, cough, dyspnea or breast pain Gastrointestinal Gastrointestinal: Denies abdominal pain, constipation or vomiting Genitourinary Genitourinary: Denies dysuria or flank pain Musculoskeletal Musculoskeletal: Denies difficulty walking, joint pain, limited range of motion or numbness Neurologic Neurologic: Denies abnormal movements, abnormal speech, dizziness, numbness, seizure-like activity or syncope Psychiatric Psychiatric: Denies anxiety, behavioral changes, change in appetite, confusion, depression or suicidal thoughts Physical Exam Const alert, oriented x3 and no apparent distress General Appearance: cooperative and comfortable Resp normal respiratory effort Cardio regular rate GI normal to inspection, nondistended, normoactive bowel sounds GI Narrative: uterus is firm below umbilicus Palpation: soft Back/Spine no CVA tenderness and thoraco-lumbar ROM normal Extremity normal to inspection, no clubbing, cyanosis or edema, no calf tenderness and no pedal edema Psych mental status grossly normal, thought process normal, cooperative, affect normal, speech normal, activity/motor behavior normal, denies homicidal ideation and denies suicidal ideation Assessment & Plan (1) Vaginal delivery: COMMENT: [place] girl 39 IOL GDM PLAN: Plan s/p PPD # 1 1. routine post delivery care 2. breast feeding- support given 3. rh positive 4. rubella immune 5. dc to home later today
== END 2024-09-03 14:55 | disposition home or self-care (01) | DRG 807 ==
PROVIDERS: Admitting Provider Obstetrics & Gynecology; PCP Family Medicine; Referring Provider Obstetrics & Gynecology; Visit Provider Obstetrics & Gynecology
DX: O24.420 Gestational diabetes mellitus in childbirth, diet controlled (principal); Z37.0 Single live birth; O69.81X0 Labor and delivery complicated by cord around neck, without compression, not applicable or unspecified; O99.214 Obesity complicating childbirth; O70.0 First degree perineal laceration during delivery; O99.02 Anemia complicating childbirth; Z3A.39 39 weeks gestation of pregnancy
CPT/HCPCS: 59050; 82962; 85025; 86780; 86850; 86900; 86901; 99221; J7120; G0378